=== PATIENT | female | born 1965 | race Caucasian/White ===

== ENCOUNTER → 2019-12-03 | Outpatient (CLI) | payer MEDICARE ==
--- NOTE | 2019-12-03 10:18 | XR ---
EXAMINATION TYPE: XR chest 2V DATE OF EXAM: 12/03/2019 COMPARISON: NONE HISTORY: Shortness of breath TECHNIQUE: Frontal and lateral views of the chest are obtained. FINDINGS: Scattered senescent parenchymal changes noted. Hyperinflation compatible with COPD. No evidence for infiltrate. No evidence for atelectasis. Heart size is stable. Mediastinal structures are stable and grossly unremarkable. No evidence for hilar prominence. Degenerative changes dorsal spine. IMPRESSION: 1. No evidence for acute pulmonary disease.
--- NOTE | 2019-12-03 10:28 | CT ---
EXAMINATION TYPE: CT soft tissue neck w con DATE OF EXAM: 12/03/2019 COMPARISON: None HISTORY: Submental swelling. Mass on vocal cord per patient. CT DLP: 444.7 mGycm CONTRAST: CT scan of the neck is performed with IV Contrast, patient injected with 100 mL of Isovue 300. Contrast enhanced CT of the neck was performed from the skull base through the lung apices. At the site of clinical concern which corresponds to the submental region there is prominent fat whic h could reflect lipoma. No evidence for solid mass or adenopathy in this region. AIRWAY: The supraglottic, glottic, and subglottic portions of the airway appear patent and free of mass. No visible vocal cord lesion. Correlate clinically and consider direct visualization. SALIVARY GLANDS: The submandibular and parotid glands are free of mass or inflammatory process. THYROID GLAND: Complex thyroid nodules identified bilaterally. Correlate with thyroid ultrasound. LYMPH NODES: No adenopathy seen greater than 1cm. LUNG APICES: No nodule or mass is seen. OTHER: Vascular structures are patent. Severe degenerative disc disease with the hard disc noted at C5-6 and C6-7 with central stenosis identified. Correlate with MRI. No abscess seen. IMPRESSION: 1.At the site of clinical concern which corresponds to the submental region there is prominent fat wh ich could reflect lipoma. No evidence for solid mass or adenopathy in this region. 2.No visible vocal cord lesion. Correlate clinically and consider direct visualization. 3. thyroid lesions. Further characterization with ultrasound is advised. 4. Central stenosis at C5-6 and C6-7.
== END | disposition home or self-care (01) ==
LOC: RADCTMAIN 08:51
PROVIDERS: ATTEND Otolaryngology
DX: E07.89 Other specified disorders of thyroid (principal); R05 Cough
CPT/HCPCS: 71046; 70491; Q9967

== ENCOUNTER 2019-12-15 06:23 | Day surgery (SDC) | payer MEDICARE ==
[~2019-12-15 06:23] MED LIST: ACETAMINOPHEN TAB 500 MG TAB PO ONE; DEXAMETHASONE SOD PHOSPHATE 4 MG/ML 1 ML VIAL IV ONE; FAMOTIDINE 20 MG/2 ML VIAL IV ONE; HYDROmorphone 0.5 MG/0.5 ML SYRINGE IVP PRN; LACTATED RINGERS 1,000 ML IV SCH; ONDANSETRON 4 MG/2 ML VIAL IVP ONE
[2019-12-15] MEDS ORDERED: ONDANSETRON 4 MG/2 ML VIAL ONE (06:24)
[2019-12-15] MEDS ORDERED: ACETAMINOPHEN TAB 500 MG TAB ONE (06:24)
[2019-12-15 06:45] VITALS: RESP 16
[2019-12-15] MEDS ORDERED: MIDAZOLAM 2 MG/2 ML VIAL ONE (07:26)
[2019-12-15] MEDS ORDERED: SUCCINYLCHOLINE CHLORIDE 100 MG/5 ML SYR IV ONE (07:26)
[2019-12-15] MEDS ORDERED: fentaNYL (PF) 50 MCG/ML 2 ML AMP ONE (07:26)
[2019-12-15] MEDS ORDERED: PROPOFOL 10 MG/ML 20 ML VIAL IV ONE (07:26)
[2019-12-15] MEDS ORDERED: NEOSTIGMINE 1 MG/ML 10 ML VIAL ONE (07:26)
[2019-12-15] MEDS ORDERED: DEXAMETHASONE SOD PHOSPHATE 10 MG/ML 1 ML VIAL ONE (07:26)
[2019-12-15] MEDS ORDERED: ROCURONIUM 10 MG/ML (5 ML VIAL) IV ONE (07:26)
[2019-12-15] MEDS ORDERED: GLYCOPYRROLATE 0.2 MG/ML 2 ML VIAL ONE (07:26)
[2019-12-15] MEDS ORDERED: LIDOCAINE 1% INJ 10MG/ML (20 ML MDV) ONE (07:26)
[2019-12-15 07:48] LABS: Basophils % (A) 0 %; Eosinophils % (A) 0 %; HCT 46.8 % (34.0-46.0); HGB 15.4 gm/dL (11.4-16.0); Lymphocytes # (A) 2.4 k/uL (1.0-4.8); Lymphocytes % (A) 28 %; MCHC 32.9 g/dL (31.0-37.0); MCV 94.4 fL (80.0-100.0); Mean Platelet Volume 8.3; Monocytes # (A) 0.4 k/uL (0-1.0); Monocytes % (A) 5 %; Neutrophils # (A) 5.5 k/uL (1.3-7.7); Neutrophils % (A) 65 %; Platelet Count 214 k/uL (150-450); RBC 4.95 m/uL (3.80-5.40); RDW 12.9 % (11.5-15.5); WBC 8.5 k/uL (3.8-10.6)
[2019-12-15] MEDS ORDERED: LIDOCAINE 1% INJ 10MG/ML (20 ML MDV) SQ ONE (07:59)
--- NOTE | 2019-12-15 08:52 | P.OP ---
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 This cotton quite large and now measures and was 5 cm in size. Needle biopsy reveals a probable lipoma. In addition, the patient was found to have a leukoplakic lesion of the right vocal cord. On the day of surgery she has expressed to be showing once the vocal cord biopsy and has declined the bronchoscopy and esophagoscopy. She is on inhalers and does not want anything to be done with her lungs were esophagus. Therefore per the patient's request we elected just to proceed forward with a laryngoscopy and biopsy and removal of the submental mass. All risks, benefits, and alternative therapies were discussed. Consent was obtained and all questions were answered. In addition, the patient has several thyroid nodules that she's currently being evaluated by her general surgeon Dr. Mercedes Issa. Operative Findings: Patient had a large almost 5 cm submental mass appeared to be a lipomatous growth. 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 Description of Procedure: Patient was taken to the operative room and placed in the supine position. A general inhalation anesthetic was administered to the patient by mask and subsequently intubated with a cuffed endotracheal tube by the department of anesthesia with a functioning IV line in place. The patient was monitored throughout the entire case by the department of anesthesia. The neck was sterilely prepped and draped in usual fashion and an incision was made in a wrinkle line lower in the neck. We made an incision with a 15 blade dissected through platysmas and dissected to this large lipomatous mass which was dissected and removed completely. The irrigated the area and use FloSeal for control of any postoperative bleeding. No bleeding was encountered. We closed the deep layers with 4-0 Monocryl we closed the platysmal layer with 4-0 Monocryl we closed the skin with a 5-0 Prolene. Prior to closure we did extensive undermining to allow the fascial layers to come together nicely. We obliterated the space with 4-0 Prolene. Excellent closure was obtained and we utilized Steri-Strips on top of the incision. We then opened the mouth and a tooth guard was placed. The patient does have poor teeth. A Jako laryngoscope was placed into the patient's mouth with care to avoid any trauma to the lips teeth gums and tongue. Ulcers open tongue was retracted and the entire oropharynx and hypopharynx was evaluated including the base of tongue vallecula epiglottis lateral pharynx true and false vocal cords postcricoid space piriform sinuses etc. etc. This was placed on suspension on a Lewy and microscopic visualization was performed with use of a 250 mm Leica microscope. After evaluation endoscopically then visually we removed this right vocal cord lesion. Hemostasis was spontaneous. The patient tolerated this well and the patient will be sent home with 7 days of total voice rest. Patient is to stop smoking. No alcohol is recommended. Patient understands all these preoperatively and postop semination is scheduled for 12/26/2019 at 11:30. Patient is to call if any problems should arise.
[2019-12-15 08:55] VITALS: TEMP 97.8
[2019-12-15 09:41] VITALS: BP 122/57; PULSE 80
== END 2019-12-15 09:59 | disposition home or self-care (01) ==
LOC: OR 06:23
PROVIDERS: ATTEND Otolaryngology
DX: J38.3 Other diseases of vocal cords (principal); D17.0 Benign lipomatous neoplasm of skin and subcutaneous tissue of head, face and neck; M19.90 Unspecified osteoarthritis, unspecified site; E04.1 Nontoxic single thyroid nodule; F17.210 Nicotine dependence, cigarettes, uncomplicated; Z79.899 Other long term (current) drug therapy; Z90.49 Acquired absence of other specified parts of digestive tract; Z90.710 Acquired absence of both cervix and uterus; Z90.12 Acquired absence of left breast and nipple; Z86.73 Personal history of transient ischemic attack (TIA), and cerebral infarction without residual deficits; Z80.0 Family history of malignant neoplasm of digestive organs; Z80.49 Family history of malignant neoplasm of other genital organs
CPT/HCPCS: 88304; 88305; 85025; 31541; 21556; 13132; C1762; J2250; J1100 ×2; J2710; J2405; J0690; J2001; J3010; J0330; J2704

== ENCOUNTER → 2021-01-11 | Outpatient (CLI) | payer MEDICARE ==
[2021-01-11 13:10] VITALS: BP 135/73; PULSE 79; RESP 18; TEMP 98.1
--- NOTE | 2021-01-11 13:56 | P.GSHP ---
History of Present Illness H&P Date: 01/11/21 Chief Complaint: history of left breast cancer Karol is a 55 year old white female seen in consultation for Dr. Anderson regarding a painful left breast implant. 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 An labor gang supervisor was placed several months later and the implant was then placed in November 2011. The implant is a silicone shell which is filled with saline. Following placement of the implant proximally 2 months later the patient suffered from a cerebrovascular accident. She does not have any residual from the stroke. She had very blurred vision and passed out. They have not determine the cause of the stroke. She h as subsequently developed fibromyalgia and neuropathy in her lower extremities. The patient states she has persistent burning related to the implant. The pain is constant. It is also changed in contour. She cannot lay on her left side secondary to the pain, and it causes her to be nauseated. The patient developed a lump in her right breast for which she had an excisional biopsy in 2017. She was told it was benign. She does not have any new lumps masses or nodules in either breast. She has not had a recent mammogram. Caffeine: 3 cups/day nicotine: 10 cigarettes/day chocolate: none Family history: Father: Stomach cancer Mother: Uterine cancer Sister: Uterine cancer Hormonal history: Menarche: 12 , breast fed: no, age at first : 18 menopause: hysterectomy 35; left ovaries, had uterine cancer ( did not have any radiation or chemotherapy) BCP: none hormones: none Surgical history: Hysterectomy Left breast mastectomy with implant reconstruction Right breast biopsy Appendectomy Cholecystectomy Tumor removed from vocal cord Lipoma removed Carpal tunnel right wrist Hemorrhoidectomy bladder suspension Medical history: fibromyalgia neuropathy arthritis anxiety Spasm both arms into hands Social History: nicotine: 10 cigarettes per day Alcohol: GERD Marijuana: Negative - Constitutional Constitutional: Reports sweats - EENT Eyes: denies blurred vision, denies pain Ears: bilateral: tinnitus, deny: decreased hearing Ears, nose, mouth and throat: Reports headache, Denies sore throat - Breasts Breasts: bilateral: as per HPI - Cardiovascular Comment: 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 Cardiovascular: Reports chest pain, Denies shortness of breath - Respiratory Comment: 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/ shot every two months - Gastrointestinal Gastrointestinal: Reports diarrhea, Denies abdominal pain, Denies nausea, Denies vomiting - Genitourinary (Female) Genitourinary: Denies dysuria, Denies hematuria - Menstruation Menstruation: Reports postmenopausal - Musculoskeletal Comment: arthritis, fibromyalgia - Integumentary Comment: shingles once a month on her buttock Integumentary: Reports pruritus, Reports rash - Neurological Comment: CVA - Psychiatric Psychiatric: Reports anxiety - Endocrine Endocrine: Reports fatigue, Reports weight change - Hematologic/Lymphatic Comment: none - Allergic/Immunologic Allergic/Immunologic: Reports as per HPI Past Medical History Past Medical History: Cancer, CVA/TIA Additional Past Medical History / Comment(s): hypersensitivity pneumonitis. mass chin area. dr arcadio anderson monitoring area under rib cage. cva-2011 no residual effect. breast cancer 2010. uterine cancer. lt silicone breast implant History of Any Multi-Drug Resistant Organisms: None Reported Past Surgical History: Appendectomy, Breast Surgery, Cholecystectomy, Hysterectomy Additional Past Surgical History / Comment(s): lt breast cancer with mastectomy with reconstruction, 2019 vocal cord surgery, right carpal tunnel release 06/2020 Past Anesthesia/Blood Transfusion Reactions: No Reported Reaction Past Psychological History: Anxiety Smoking Status: Current every day smoker Past Alcohol Use History: None Reported Additional Past Alcohol Use History / Comment(s): smoker for 40+ years 1 ppd attempting to quit Past Drug Use History: None Reported - Past Family History Father Family Medical History: Cancer Additional Family Medical History / Comment(s): stomach cancer Medications and Allergies Home Medications Medication Instructions Recorded Confirmed Type Albuterol Inhaler [Ventolin Hfa 1 puff INHALATION DAILY PRN 12/09/19 01/11/21 History Inhaler] Albuterol Nebulized [Ventolin 2.5 mg INHALATION DAILY PRN 12/09/19 01/11/21 History Nebulized] Fluticasone Propionate 220 Mcg 1 puff INHALATION RT-BID 12/09/19 01/11/21 History [Flovent 220 Mcg Inhaler (Mhu)] Escitalopram [Lexapro] PO DAILY 01/11/21 History Allergies Allergy/AdvReac Type Severity Reaction Status Date / Time No Known Allergies Allergy Verified 01/11/21 12:55 Surgical - Exam Vital Signs Temp Pulse Resp BP Pulse Ox 98.1 F 79 18 135/73 97 01/11/21 12:58 01/11/21 12:58 01/11/21 12:58 01/11/21 12:58 01/11/21 12:58 BMI 29.8 - General no distress - Eyes normal ocular movement - ENT no hearing loss - Neck no masses, trachea midline - Respiratory normal respiratory effort, clear to auscultation - Cardiovascular Rhythm: regular Heart Sounds: normal: S1, S2 - Abdomen Abdomen: soft, non tender, no guarding, no rigid, no rebound - Integumentary normal turgor - Neurologic no disoriented, no combative - Musculoskeletal normal gait - Psychiatric oriented to time, oriented to person, oriented to place, speech is normal, memory intact Breast Exam: BRA: 36C inspection: Postop changes left chest wall Palpation: Right breast: Multi-positional exam dense breast fibrocystic changes no dominant masses or nodules of concern; grade 2 ptosis Right axilla: No adenopathy of concern Left chest wall colon implant reconstruction well-healed scar from prior surgery no evidence of any recurrent cancer Left axilla: No adenopathy of concern Results Mammogram from [address] Carroll patient does not have a more recent mammogram Assessment and Plan Assessment: Impression: 1. Status post right breast biopsy no lesions of concern noted in the right breast, last right breast mammogram 2018 2. Status post left mastectomy for malignant full-radius tumor with subpectoral implant reconstruction, no evidence of recurrent cancer at this time 3. Patient experiencing pain related to the implant Plan: 1. Patient would like the implant removed; it has been in for 9 years; is changed contour, it makes it difficult for her to find close to fit correctly, it is painful on a regular basis 2. Patient is due for a right breast mammogram I discussed the risks and benefits of removal of the implant. Secondary to the fact that the skin would be redundant. Also decreased the envelope of skin and remove the nipple areolar complex. She would have a flat incision across the chest wall. She understands this. She also understands that it may or may not alleviate her pain. She would like to proceed. CC: Dr. Anderson
== END | disposition home or self-care (01) ==
LOC: WWCWWP 12:47
PROVIDERS: ATTEND Surgery
DX: Z53.9 Procedure and treatment not carried out, unspecified reason (principal)

== ENCOUNTER → 2021-01-16 | Outpatient (CLI) | payer MEDICARE ==
--- NOTE | 2021-01-16 11:10 | MM ---
Reason for exam: additional evaluation requested from prior study. Last mammogram was performed 1 year and 10 months ago. History: Patient has history of breast cancer at age 45 and has history of endometrial cancer at age 35. Benign ultrasound-guided core biopsy of the right breast, January 14, 2014. Implant in the left breast, 2011. Mastectomy of the left breast, 2010. Physical Findings: Nurse did not find any significant physical abnormalities on exam. MG 3D Diag Mammo W/Cad RT CC and MLO view(s) were taken of the right breast. Prior study comparison: March 30, 2019, mammogram, performed at [facility]. January 05, 2018, mammogram, performed at [facility]. The breast tissue is heterogeneously dense. This may lower the sensitivity of mammography. Finding: There are typically benign fine, diffuse/scattered calcifications in the right breast. Previous mammotome biopsy in the right breast. These results were verbally communicated with the patient and result sheet given to the patient on 01/16/21. ASSESSMENT: Incomplete: need additional imaging evaluation, BI-RAD 0 RECOMMENDATION: Ultrasound of the right breast. (region of pain)
--- NOTE | 2021-01-16 11:15 | USB ---
Reason for exam: additional evaluation requested from abnormal screening. History: Patient has history of breast cancer at age 45 and has history of endometrial cancer at age 35. Benign ultrasound-guided core biopsy of the right breast, January 14, 2014. Implant in the left breast, 2011. Mastectomy of the left breast, 2010. US Breast RT Right complete breast ultrasound includes all four quadrants, the retroareolar region and axilla. Finding demonstrates a 0.5 x 0.5 x 0.4cm oval, complex, cystic lesion at 12 o'clock, a 0.4 x 0.3 x 0.4cm oval, complex, cystic lesion at 1 o'clock, a 0.5 x 0.4 x 0.3cm oval, complex, cystic cluster at 2 o'clock, a 0.9 x 0.7 x 0.5cm oval, cystic lesion at 5 o'clock, a 0.5 x 0.6 x 0.4cm oval, cystic cluster at 5 o'clock, no posterior enhancement, biopsy recommended, duct ectasia at 7 o'clock, a 0.9 x 0.8 x 0.5cm cystic lesion at 9 o'clock, a 1.0 x 0.8 x 0.4cm lobular, cystic lesion at 11 o'clock and a 1.6 x 1.1 x 1.0cm lymph node at the axilla. These results were verbally communicated with the patient and result sheet given to the patient on 01/16/21. ASSESSMENT: Suspicious, BI-RAD 4 RECOMMENDATION: Ultrasound core biopsy of the right breast. (5 o'clock) Called office with mammographic findings and has scheduled an appointment for the patient for 02/07/21 at 12:[address] Pritchard. Biopsy scheduled for 01/23/21 at 7:00. PRELIMINARY REPORT CALLED AND FAXED TO DR. PRITCHARD ON 01/16/21.
== END | disposition home or self-care (01) ==
LOC: RADMAMWWP 08:57
PROVIDERS: ATTEND Surgery
DX: R92.8 Other abnormal and inconclusive findings on diagnostic imaging of breast (principal); N64.4 Mastodynia; Z85.3 Personal history of malignant neoplasm of breast
CPT/HCPCS: 77065; 76641; G0279; 77061

== ENCOUNTER → 2021-01-23 | Day surgery (SDC) | payer MEDICARE ==
[2021-01-23 07:23] VITALS: BP 130/74; PULSE 84; RESP 16; TEMP 98.4
--- NOTE | 2021-01-23 14:35 | USB ---
EXAMINATION TYPE: US discontinued breast bx RT DATE OF EXAM: 01/23/2021 COMPARISON: 01/16/2021 HISTORY: 55-year-old female R920.8, abnormal mammogram TECHNIQUE: Targeted ultrasound 5:00 position at the intended biopsy site, zone A. FINDINGS: On targeted ultrasound, there is redemonstration of a oval lesion 5:00 zone a. However, on the curren t exam, this has a more cystic appearance now with posterior through transmission. Suspect a cyst yvonne t has cleared and internal debris. Biopsy is canceled. Six-month follow-up right breast ultrasound is recommended. Findings and impression were discussed with the patient. IMPRESSION: BI-RADS 3, probably benign RECOMMENDATION: 1. Six-month follow-up right breast ultrasound. 2. Patient should continue monthly self breast exams. 3. These results should not preclude additional follow-up of suspicious palpable abnormalities.
== END ==
LOC: RADUSWWP 06:57
PROVIDERS: ATTEND Surgery
DX: R92.8 Other abnormal and inconclusive findings on diagnostic imaging of breast (principal)

== ENCOUNTER → 2021-02-07 | Outpatient (CLI) | payer MEDICARE ==
[2021-02-07 12:51] VITALS: BP 131/74; PULSE 105; RESP 12; TEMP 98.7
--- NOTE | 2021-02-07 13:21 | P.PN ---
Subjective Progress Note Date: 02/07/21 Principal diagnosis: Malignant phylloides tumor left breast, 2010 Karol is a 55 year old white female seen in consultation for Dr. Anderson regarding a painful left breast implant. 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 An cannery tender engineer was placed several months later and the implant was then placed in November 2011. The implant is a silicone shell which is filled with saline. Following placement of the implant proximally 2 months later the patient suffered from a cerebrovascular accident. She does not have any residual from the stroke. She had very blurred vision and passed out. They have not determine the cause of the stroke. She has subsequently developed fibromyalgia and neuropathy in her lower extremities. She has had multiple right breast biopsies, she has persistent pain and discomfort in the right breast. She has anxiety related to the right breast patient will develop a tumor in the side. She is not interested in continued surveillance and would like to have a right breast mastectomy to match removal of the left breast implant so she will be symmetric. We have discussed the prophylactic mastectomy does not increase survival, she understands this but is very concerned about the surveillance and the asymmetry and wishes it to be removed. I've also discussed that prophylactic mastectomy has risks associated with it which include bleeding, infection, reaction to the anesthetic. Again she understands and wishes to proceed. The patient states she has persistent burning related to the implant. The pain is constant. It is also changed in contour. She cannot lay on her left side secondary to the pain, and it causes her to be nauseated. She cannot find clothes to fit correctly. The patient developed a lump in her right breast for which she had an excisional biopsy in 2017. She was told it was benign. She does not have any new lumps masses or nodules in either breast. She has not had a recent mammogram. [place] [id number]. This was followed by a right breast ultrasound. Initially there was recommendation for core biopsy however on attempted core biopsy on the procedure was canceled with six-month follow-up of the right breast recommended instead. Caffeine: 3 cups/day nicotine: 10 cigarettes/day chocolate: none Family history: Father: Stomach cancer Mother: Uterine cancer Sister: Uterine cancer patient: malignant phyloides tumor Hormonal history: Menarche: 12 , breast fed: no, age at first : 18 menopause: hysterectomy 35; left ovaries, had uterine cancer ( did not have any radiation or chemotherapy) BCP: none hormones: none Surgical history: Hysterectomy Left breast mastectomy with implant reconstruction; malignant phylloides tumor Right breast biopsy Appendectomy Cholecystectomy Tumor removed from vocal cord Lipoma removed Carpal tunnel right wrist Hemorrhoidectomy bladder suspension Medical history: fibromyalgia neuropathy arthritis anxiety Spasm both arms into hands Social History: nicotine: 10 cigarettes per day Alcohol: GERD Marijuana: Negative - Constitutional Constitutional: Reports sweats - EENT Eyes: denies blurred vision, denies pain Ears: bilateral: tinnitus, deny: decreased hearing Ears, nose, mouth and throat: Reports headache, Denies sore throat - Breasts Breasts: bilateral: as per HPI - Cardiovascular Comment: 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 Cardiovascular: Reports chest pain, Denies shortness of breath - Respiratory Comment: 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/ shot every two months - Gastrointestinal Gastrointestinal: Reports diarrhea, Denies abdominal pain, Denies nausea, Denies vomiting - Genitourinary (Female) Genitourinary: Denies dysuria, Denies hematuria - Menstruation Menstruation: Reports postmenopausal - Musculoskeletal Comment: arthritis, fibromyalgia - Integumentary Comment: shingles once a month on her buttock Integumentary: Reports pruritus, Reports rash - Neurological Comment: CVA - Psychiatric Psychiatric: Reports anxiety - Endocrine Endocrine: Reports fatigue, Reports weight change - Hematologic/Lymphatic Comment: none - Allergic/Immunologic Allergic/Immunologic: Reports as per HPI Objective - Vital Signs Vital signs: Vital Signs Temp 98.7 F 02/07/21 12:43 Pulse 105 H 02/07/21 12:43 Resp 12 02/07/21 12:43 BP 131/74 02/07/21 12:43 Pulse Ox 96 02/07/21 12:43 Intake & Output 02/06/21 02/07/21 02/07/21 18:59 06:59 18:59 Weight 86.183 kg - Exam BMI 29.8 - Constitutional General appearance: Present: cooperative - EENT Eyes: Present: EOMI ENT: Present: hearing grossly normal - Neck Neck: Present: normal ROM - Respiratory Respiratory: bilateral: CTA - Cardiovascular Rhythm: regular Heart sounds: normal: S1, S2 - Integumentary Integumentary: Present: normal turgor - Musculoskeletal Musculoskeletal: Present: gait normal - Psychiatric Psychiatric: Present: A&O x's 3, appropriate affect, intact judgment & insight - Additional findings Additional findings: Breast examination: Block: 30 6C Inspection: Postop changes left chest wall Palpation: Right breast: Positional exam dense fibrocystic changes no dominant masses or nodules of concern, grade 2 ptosis Right axilla: No adenopathy of concern Left chest wall colon implant reconstruction well-healed scar from prior surgery no evidence of recurrent cancer Left axilla: No adenopathy of concern Assessment and Plan Assessment: Impression: 1. Multiple prior right breast biopsies which have been benign, recent recommendation for right breast biopsy canceled and ultrasound in 6 months suggested 2. Status post left mastectomy for malignant phyllodes tumor with subpectoral implant reconstruction no evidence of recurrent cancer at this time 3. Patient experiencing pain related to the implant 4. Patient asymmetric secondary to the implant 5. Implant is painful 6. Patient cannot find close to fit correctly secondary to the asymmetry Plan: 1. Patient would like the implant removed, it has been in for 9 years it is changed contour it is difficult for her to find close to fit correctly, it is painful on a regular basis, 2. Patient wishes prophylactic right mastectomy, we have discussed that this will not increase survival however it will improve an symmetry, the patient understands and wishes it to be performed Risks and benefits of the procedure are discussed which include bleeding, infection, reaction to the anesthetic. She also understands that she could be seen by plastic surgeon if she would wish and has declined at this time. The patient does not want reconstruction done after the implant was removed. Cc: Dr. Franck Anderson
== END ==
LOC: WWCWWP 12:38
PROVIDERS: ATTEND Surgery
DX: Z53.9 Procedure and treatment not carried out, unspecified reason (principal)

== ENCOUNTER → 2021-04-05 | Outpatient (CLI) | payer MEDICARE ==
[2021-04-05 12:37] VITALS: BP 127/72; PULSE 88; RESP 16; TEMP 98
--- NOTE | 2021-04-05 13:00 | P.PN ---
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 Anderson regarding a painful left breast implant. 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 An relay associate was placed several months later and the implant was then placed in November 2011. The implant is a silicone shell which is filled with saline. Following placement of the implant approximately 2 months later the patient suffered from a cerebrovascular accident. She does not have any residual from the stroke. She had very blurred vision and passed out. They have not determine the cause of the stroke. She has subsequently developed fibromyalgia and neuropathy in her lower extremities. She has had multiple right breast biopsies, she has persistent pain and discomfort in the right breast. She has anxiety related to the right breast that she will develop a tumor in the side. She is not interested in continued surveillance and would like to have a right breast mastectomy: to match she wishes removal of the left breast implant so she will be symmetric. We have discussed the prophylactic mastectomy does not increase survival, she understands this but is very concerned about the surveillance and the asymmetry and wishes it to be removed. I've also discussed that prophylactic mastectomy has risks associated with it which include bleeding, infection, reaction to the anesthetic. Again she understands and wishes to proceed. The patient states she has persistent burning related to the implant. The pain is constant. It is also changed in contour. She cannot lay on her left side secondary to the pain, and it causes her to be nauseated. She cannot find clothes to fit correctly. The patient developed a lump in her right breast for which she had an excisional biopsy in 2017. She was told it was benign. She does not have any new lumps masses or nodules in either breast. She has not had a recent mammogram. She underwent a right breast mammogram on . This was followed by a right breast ultrasound. Initially there was recommendation for core biopsy however on attempted core biopsy on the procedure was canceled with six-month follow-up of the right breast recommended instead. Caffeine: 3 cups/day nicotine: 10 cigarettes/day chocolate: none Family history: Father: Stomach cancer Mother: Uterine cancer Sister: Uterine cancer patient: malignant phyloides tumor Hormonal history: Menarche: 12 , breast fed: no, age at first : 18 menopause: hysterectomy 35; left ovaries, had uterine cancer ( did not have any radiation or chemotherapy) BCP: none hormones: none Surgical history: Hysterectomy Left breast mastectomy with implant reconstruction; malignant phylloides tumor Right breast biopsy Appendectomy Cholecystectomy Tumor removed from vocal cord Lipoma removed Carpal tunnel right wrist Hemorrhoidectomy bladder suspension Medical history: fibromyalgia neuropathy arthritis anxiety Spasm both arms into hands Social History: nicotine: 10 cigarettes per day Alcohol: GERD Marijuana: Negative - Constitutional Constitutional: Reports sweats - EENT Eyes: denies blurred vision, denies pain Ears: bilateral: tinnitus, deny: decreased hearing Ears, nose, mouth and throat: Reports headache, Denies sore throat - Breasts Breasts: bilateral: as per HPI - Cardiovascular Comment: 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 Cardiovascular: Reports chest pain, Denies shortness of breath - Respiratory Comment: 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/ shot every two months - Gastrointestinal Gastrointestinal: Reports diarrhea, Denies abdominal pain, Denies nausea, Denies vomiting - Genitourinary (Female) Genitourinary: Denies dysuria, Denies hematuria - Menstruation Menstruation: Reports postmenopausal - Musculoskeletal Comment: arthritis, fibromyalgia - Integumentary Comment: shingles once a month on her buttock Integumentary: Reports pruritus, Reports rash - Neurological Comment: CVA - Psychiatric Psychiatric: Reports anxiety - Endocrine Endocrine: Reports fatigue, Reports weight change - Hematologic/Lymphatic Comment: none - Allergic/Immunologic Allergic/Immunologic: Reports as per HPI Objective - Vital Signs Vital signs: Vital Signs Temp 98.0 F 04/05/21 12:33 Pulse 88 04/05/21 12:33 Resp 16 04/05/21 12:33 BP 127/72 04/05/21 12:33 Pulse Ox Intake & Output 04/04/21 04/05/21 04/05/21 18:59 06:59 18:59 Weight 86.183 kg - Exam BMI 29.8 - Constitutional General appearance: Present: cooperative - EENT Eyes: Present: EOMI ENT: Present: hearing grossly normal - Neck Neck: Present: normal ROM - Respiratory Respiratory: bilateral: CTA - Cardiovascular Heart sounds: normal: S1, S2 - Gastrointestinal General gastrointestinal: Present: soft - Integumentary Integumentary: Present: normal turgor - Musculoskeletal Musculoskeletal: Present: gait normal - Psychiatric Psychiatric: Present: A&O x's 3, appropriate affect, intact judgment & insight - Additional findings Additional findings: Breast Exam: Bra: 36C inspection: which are between the right and left breast secondary to prior surgery and left mastectomy Palpation: Right breast: Multiple positional exam no dominant masses or nodules of concern Right axilla: No adenopathy of concern Left chest wall: Status post left mastectomy with reconstruction no evidence of recurrent phyllodes tumor Left axilla: No adenopathy of concern Assessment and Plan Assessment: Impression: 1. Asymmetry secondary to prior left mastectomy for lady's tumor 2. Recent mammogram multiple prior right breast biopsies which have been benign 4. Painful implant on the left 6. Patient has difficulty finding close to fit properly secondary to the asymmetry Plan: 1. Patient would like the implant removed, it is been there for 9 years is changed contour it is difficult for her to find close to fit correctly is painful on a regular basis 2. Patient wishes prophylactic right mastectomy we have discussed this will not increase survival however will improve and symmetry, the patient understands and wishes this to be performed Risks and benefits of the procedure discussed which include bleeding, infection, reaction to the anesthetic. She also understands that she could be seen by a plastic surgeon if she would wish and has declined at this time. The patient does not want reconstruction done after the implant are removed. CC: Dr. Gomez
== END | disposition home or self-care (01) ==
LOC: WWCWWP 12:21
PROVIDERS: ATTEND Surgery
DX: Z53.9 Procedure and treatment not carried out, unspecified reason (principal)

== ENCOUNTER 2021-04-09 07:35 | Day surgery (SDC) | payer MEDICARE ==
[2021-04-04 16:05] VITALS: BMI 29.7
[~2021-04-09 07:35] MED LIST changes: -ACETAMINOPHEN TAB 500 MG TAB PO ONE; -FAMOTIDINE 20 MG/2 ML VIAL IV ONE; +HEPARIN SODIUM,PORCINE/PF 5,000 UNIT/0.5 ML SYRINGE SQ PRN; +Pre Op ABX Message 1 EACH MISC MISCELLANE ONE
[2021-04-09] MEDS ORDERED: LIDOCAINE 1% (10MG/ML) FOR IV START INTRADERMA ONE (08:22)
[2021-04-09] MEDS ORDERED: SUCCINYLCHOLINE CHLORIDE 100 MG/5 ML SYR IV ONE (08:46)
[2021-04-09] MEDS ORDERED: GLYCOPYRROLATE 0.2 MG/ML 2 ML VIAL ONE (08:46)
[2021-04-09] MEDS ORDERED: PROPOFOL 10 MG/ML 20 ML VIAL IV ONE (08:46)
[2021-04-09] MEDS ORDERED: NEOSTIGMINE 1 MG/ML 10 ML VIAL ONE (08:46)
[2021-04-09] MEDS ORDERED: LABETALOL 5 MG/ML VIAL MDV ONE (08:46)
[2021-04-09] MEDS ORDERED: MIDAZOLAM 2 MG/2 ML VIAL ONE (08:46)
[2021-04-09] MEDS ORDERED: LIDOCAINE 1% INJ 10MG/ML (20 ML MDV) ONE (08:46)
[2021-04-09] MEDS ORDERED: KETAMINE 10 MG/ML 20 ML VIAL ONE (08:46)
[2021-04-09] MEDS ORDERED: ROCURONIUM 10 MG/ML (5 ML VIAL) IV ONE (08:46)
[2021-04-09] MEDS ORDERED: .fentaNYL (PF) 50 MCG/ML 2 ML AMP ONE (08:46)
[2021-04-09] MEDS ORDERED: SODIUM CHLORIDE 0.9% 100 ML with ceFAZolin 2,000 MG IV ONE ×2 (09:01)
[2021-04-09] MEDS ORDERED: LACTATED RINGERS 1,000 ML IV ONE (10:48)
[2021-04-09] MEDS ORDERED: HYDROmorphone 1 MG/ML 1 ML SYRINGE IVP PRN (12:03)
[2021-04-09] MEDS ORDERED: HYDROcodone/APAP 5-325MG 1 EACH TAB PO PRN (12:03)
[2021-04-09] MEDS ORDERED: ONDANSETRON 4 MG/2 ML VIAL IVP PRN (12:03)
[2021-04-09] MEDS ORDERED: NALOXONE 0.4 MG/ML 1 ML VIAL IV PRN (12:03)
--- NOTE | 2021-04-09 12:03 | P.OP ---
Date of Procedure: 04/09/21 Preoperative Diagnosis: Contracture left breast implant/history of malignant fluid these tumor left breast/patient for right mastectomy related to symmetry Postoperative Diagnosis: Contracture left breast implant/prior history left breast for phylloides tumor Procedure(s) Performed: Removal left breast implant, removal of left chest wall, right simple mastectomy Anesthesia: JUS Surgeon: Lulu Pritchard Estimated Blood Loss (ml): 50 IV fluids (ml): 1,400 Pathology: other (Left breast implant/left implant capsule/right simple mastectomy) Condition: stable Disposition: floor Indications for Procedure: Contracture left breast implant/asymmetry following removal Operative Findings: Left breast implant was capsule, dense right breast tissue Description of Procedure: Patient is a 55-year-old white female status post left mastectomy and implant reconstruction approximately 9 years ago for malignant phylloides tumor. She has subsequently developed contracture of the left breast implant with pain. She wishes the implant to be removed without reconstruction additionally she wishes a right mastectomy secondary to asymmetry which would be present. The patient was taken to the operative suite and following induction of anesthesia both breasts were prepped and draped in a sterile fashion. The left side was approached initially. An incision was made and a portion of the skin was removed. This was carried down to the pectoralis muscle which was dissected free from the skin flaps. The implant was identified it was very superficial under the muscle and was extruded. Following this the capsule was grasped and was able to be dissected free. The wound was then examined for hemostasis. After we were assured that hemostasis was attained the wound was well irrigated. Surgicel in powder form was placed. The subcutaneous tissues were closed using 3-0 Vicryl suture. The skin was closed using 4-0 Monocryl. Prior to closure a #10 JASON drain was placed and secured using a nylon suture. Following this the right side was approached. The area for incision was drawn and the superior flap was then developed. This was developed down to the chest wall. Inferior skin flap was then developed. The breast was removed from medial to lateral being careful to maintain hemostasis using the electrocautery cautery device as well as the Harmonic scalpel. After the specimen was removed it was tagged for orientation. A short suture was placed superior and a long suture was lateral. The wound was well irrigated. After we were assured that hemastasis was attained surgicel in powder form was placed. A JASON drain was placed and secured using a nylon suture. The subcutaneous tissue was closed using 3-0 Vicryl suture. This is followed by closure of the skin using a 4-0 Monocryl. An exofinfusion dressing was placed on both sides. The patient tolerated the procedure in stable condition. All instrument and sponge counts were correct at the end of the case.
[2021-04-09 16:28] VITALS: RESP 16
[2021-04-09] MEDS: HEPARIN SODIUM,PORCINE/PF 5,000 UNIT/0.5 ML SYRINGE SQ SCH (16:50)
[2021-04-09] MEDS: DEXTROSE 5%-0.45% NACL 1,000 ML IV SCH (16:51)
[2021-04-09] MEDS ORDERED: ALBUTEROL NEBULIZED 2.5 MG/3 ML INHALATION PRN (17:18)
[2021-04-09] MEDS ORDERED: ALBUTEROL HFA INHALER INHALATION PRN ×3 (17:31→19:03)
[2021-04-09] MEDS ORDERED: DEXTROSE 5%-0.45% NACL 1,000 ML BAG IV ONE (22:15)
[2021-04-10] MEDS ORDERED: HEPARIN SODIUM,PORCINE 5,000 UNIT/ML 1 ML VIAL ONE
[2021-04-10] MEDS: HEPARIN SODIUM,PORCINE/PF 5,000 UNIT/0.5 ML SYRINGE SQ SCH ×2 (03:18→10:35)
[2021-04-10] MEDS: DEXTROSE 5%-0.45% NACL 1,000 ML IV SCH (03:18)
[2021-04-10] MEDS ORDERED: PANTOPRAZOLE 40 MG TABLET PO SCH (07:30)
[2021-04-10 08:57] VITALS: BP 143/78; PULSE 76; TEMP 98
[2021-04-10 09:35] LABS: Basophils # (A) 0.1 k/uL (0-0.2); Basophils % (A) 0 %; Eosinophils % (A) 0 %; HCT 42.4 % (34.0-46.0); Lymphocytes # (A) 3.7 k/uL (1.0-4.8); Lymphocytes % (A) 24 %; MCH 31.7 pg (25.0-35.0); MCV 95.9 fL (80.0-100.0); Monocytes # (A) 0.5 k/uL (0-1.0); Monocytes % (A) 3 %; Neutrophils # (A) 11.1 k/uL (1.3-7.7); Neutrophils % (A) 72 %; Platelet Count 197 k/uL (150-450); RBC 4.42 m/uL (3.80-5.40); RDW 13.7 % (11.5-15.5); WBC 15.6 k/uL (3.8-10.6)
--- NOTE | 2021-04-10 13:08 | P.PN ---
Subjective Progress Note Date: 04/10/21 Principal diagnosis: Postop day #1 right mastectomy, left removal of implant and capsulectomy The patient is a 55-year-old white female postop day #1 removal of left breast implant and capsulectomy and right simple mastectomy. Postprocedure the patient is doing well. JASON output is serous in nature. Hemoglobin 14. White blood cell count 15.6 been no evidence of infection. She is not complaining of any nausea or pain. Objective - Vital Signs Vital signs: Vital Signs Temp 98.0 F 04/10/21 07:55 Pulse 76 04/10/21 07:55 Resp 16 04/10/21 08:00 BP 143/78 04/10/21 07:55 Pulse Ox 95 04/10/21 07:55 Intake & Output 04/09/21 04/10/21 04/10/21 18:59 06:59 18:59 Intake Total 1820 Output Total 265 65 90 Balance 1555 -65 -90 Weight 86.3 kg Intake: IV 1700 Oral 120 Output: Drainage 15 65 90 Right drain 5 5 10 left drain 10 60 80 Urine 200 Estimated Blood Loss 50 Other: # Voids 1 3 - Constitutional General appearance: Present: cooperative - EENT Eyes: Present: EOMI ENT: Present: hearing grossly normal - Neck Neck: Present: normal ROM - Respiratory Details: Decreased breath sounds at bases Respiratory: bilateral: CTA - Cardiovascular Heart sounds: normal: S1, S2 - Integumentary Integumentary Comment(s): Dressing changed, incisions clean and dry bilateral, JASON right 10 mL serous JASON left 80 mL serous - Psychiatric Psychiatric: Present: A&O x's 3, appropriate affect, intact judgment & insight - Labs CBC & Chem 7: 04/10/21 07:15 Labs: Abnormal Lab Results - Last 24 Hours (Table) 04/10/21 Range/Units 07:15 WBC 15.6 H (3.8-10.6) k/uL Neutrophils # 11.1 H (1.3-7.7) k/uL Assessment and Plan Assessment: Impression: Patient post operative day #1 right mastectomy, left removal of implant and capsulectomy Serous drainage left side 80 mL White blood cell count 15.6 no evidence of infection at incision site Plan: Discharge patient home Teach drain care Repeat WBC in follow-up in 2 days If patient develops any fever or any questions or concerns she should follow up sooner Using incentive spirometry at home/patient history of nicotine use
--- NOTE | 2021-04-10 13:12 | P.DS ---
Providers Attending physician: Lulu Pritchard Primary care physician: Franck Anderson MD Hospital Course: Patient on 04-09-21 status post right mastectomy and left removal of implant and capsulectomy. Postprocedure she is doing well. She was noted to have an elevated white count of 15.6 but no evidence of active infection. She is afebrile. Incisions are clean and dry. JASON drainage is serous in nature. She does have some slight decreased breath sounds at the bases has a history of nicotine use. She is encouraged to use incentive spirometry. Procedures: 14954 right mastectomy, left removal of implant and capsulectomy Plan - Discharge Summary Discharge Rx Participant: No New Discharge Prescriptions: No Action Albuterol Inhaler [Ventolin Hfa Inhaler] 2 puff INHALATION QID PRN PRN Reason: sob, wheezing Benralizumab [Fasenra] 30 mg INJ Q60D Escitalopram [Lexapro] 10 mg PO QAM Omeprazole 40 mg PO QAM Discharge Medication List Albuterol Inhaler [Ventolin Hfa Inhaler] 2 puff INHALATION QID PRN 12/09/19 [History] Escitalopram [Lexapro] 10 mg PO QAM 01/11/21 [History] Benralizumab [Fasenra] 30 mg INJ Q60D 01/21/21 [History] Omeprazole 40 mg PO QAM 04/04/21 [History] Follow up Appointment(s)/Referral(s): Lulu Pritchard MD [STAFF PHYSICIAN] - 04/18/21 3:20 pm Activity/Diet/Wound Care/Special Instructions: Pt's albuterol inhaler is in med room, please give back to her at discharge. OK TO DISCHARGE HOME, DAILY DRESSING CHANGE, CALL FOR TEMP >or = to 100.4, any thick red, or yellow/green foul drainage from JASON drains, any other problems or concerns. Sponge bathe until ok'd by Dr. De Paz to shower. Strip drains 3 times a day and empty as needed and record. Light activity, no lifting or strenous activity. No driving while taking norco. Repeat labs prior to office recheck appt with Dr. De Paz. Patient drain care Continue to use incentive spirometer May shower after 48 hours Drain and record JASON output every 24 hours and as needed Discharge Disposition: HOME SELF-CARE
== END 2021-04-10 14:30 | disposition home or self-care (01) ==
LOC: OR 07:35 → 6PED 12:03 → OR 04-10 14:30
PROVIDERS: ATTEND Surgery
DX: T85.44XA Capsular contracture of breast implant, initial encounter (principal); N65.1 Disproportion of reconstructed breast; Z85.3 Personal history of malignant neoplasm of breast; Z20.822 Contact with and (suspected) exposure to COVID-19; Z98.890 Other specified postprocedural states; K21.9 Gastro-esophageal reflux disease without esophagitis; M79.7 Fibromyalgia; F41.9 Anxiety disorder, unspecified; F17.210 Nicotine dependence, cigarettes, uncomplicated; F32.A Depression, unspecified; M19.90 Unspecified osteoarthritis, unspecified site; G62.9 Polyneuropathy, unspecified; Z86.73 Personal history of transient ischemic attack (TIA), and cerebral infarction without residual deficits; J67.8 Hypersensitivity pneumonitis due to other organic dusts; Z78.0 Asymptomatic menopausal state; Z90.710 Acquired absence of both cervix and uterus; Z90.49 Acquired absence of other specified parts of digestive tract; Z80.49 Family history of malignant neoplasm of other genital organs; Z80.0 Family history of malignant neoplasm of digestive organs; Z79.899 Other long term (current) drug therapy
CPT/HCPCS: 88305; 85025; 88307; 87635; 19303; 19328; J2250; J1644 ×3; J1100; J2710; J2405; J0690; J2001; J3010; J0330; J2704; J1170; 88309

== ENCOUNTER → 2021-04-12 | Outpatient (CLI) | payer MEDICARE | END | disposition home or self-care (01) | LOC: WWCWWP 09:10 | PROVIDERS: ATTEND Surgery | DX: Z53.9 Procedure and treatment not carried out, unspecified reason (principal) ==

== ENCOUNTER → 2021-04-12 | Outpatient (CLI) | payer MEDICARE ==
[2021-04-12 09:54] VITALS: BP 122/67; PULSE 81; RESP 18; TEMP 98.1
--- NOTE | 2021-04-12 10:10 | P.PN ---
Progress Note - Text Progress Note Date: 04/12/21 Karol is a 55 -year-old white female status post removal of left breast implant and capsule and right mastectomy on . Postoperatively she is doing well. She has minimal output from her right JASON drain which will be removed today the left JASON drain continues to put out approximately 50 mL per day with a serous in nature. Physical exam: Lungs: Clear Heart: S1-S2 Bilateral incisions clean and dry no evidence of infection JASON right serous in nature. Proximally 5 mL a day JASON left approximately 50 mL per day serous in nature Impression/plan: 1. Remove right JASON drain 2. Follow up next week for removal of left JASON drain 3. Repeat CBC is white count at time of discharge was 15.6
== END | disposition home or self-care (01) ==
LOC: WWCWWP 09:38
PROVIDERS: ATTEND Surgery
DX: Z53.9 Procedure and treatment not carried out, unspecified reason (principal)

== ENCOUNTER → 2021-04-18 | Outpatient (CLI) | payer MEDICARE ==
[2021-04-18 15:41] VITALS: BP 107/70; PULSE 73; RESP 16; TEMP 98.2
--- NOTE | 2021-04-18 16:00 | P.PN ---
Progress Note - Text Progress Note Date: 04/18/21 Karol is a 55 -year-old white female status post removal of left breast implant and capsule and right mastectomy on . Postoperatively she is doing well. She has minimal output from her right JASON drain which will be removed today the left JASON drain continues to put out approximately 50 mL per day with a serous in nature. Tolliver CBC revealing white count 10.75, hemoglobin 13.9. Physical exam: Lungs: Clear Heart: S1-S2 Bilateral incisions clean and dry no evidence of infection Small seroma right chest wall patient does not want this to be drained JASON left approximately 25 mL per day serous in nature Impression/plan: 1. Remove right JASON drain 2. Follow-up 6 months for evaluation 3. Follow up sooner if any concerns regarding seroma development CC: Dr. Anderson
== END | disposition home or self-care (01) ==
LOC: WWCWWP 15:31
PROVIDERS: ATTEND Surgery
DX: Z53.9 Procedure and treatment not carried out, unspecified reason (principal)

== ENCOUNTER → 2021-05-10 | Outpatient (CLI) | payer MEDICARE ==
[2021-05-10 14:30] VITALS: BP 120/74; PULSE 88; RESP 18; TEMP 98.6
--- NOTE | 2021-05-10 14:56 | P.PN ---
Progress Note - Text Progress Note Date: 05/10/21 Karol is a 56 -year-old white female status post removal of left breast implant and capsule and right mastectomy on . Postoperatively she is doing well. She did develop a seroma on the right chest wall in a drainage. Physical exam: lungs: clear heart: RRR Bilateral incisions clean and dry no evidence of infection seroma right chest wall Area of the right chest is prepped using Betadine 18-gauge needle and 60 mL syringe was utilized to aspirate seroma, 90 mL of fluid was aspirated Following the 18-gauge needle on a 20 mL syringe was utilized to aspirate an additional 30 mL of fluid A total of 120 mL of serous colored fluid was aspirated with resolution of the seroma Impression/plan: 1. aspiration of seroma 2. Follow-up 6 months for evaluation 3. Follow up sooner if any concerns regarding seroma development
== END | disposition home or self-care (01) ==
LOC: WWCWWP 14:16
PROVIDERS: ATTEND Surgery
DX: Z53.9 Procedure and treatment not carried out, unspecified reason (principal)

== ENCOUNTER → 2021-10-10 | Outpatient (CLI) | payer MEDICARE ==
[2021-10-10 12:02] VITALS: BP 177/70; PULSE 86; RESP 17; TEMP 98.1
--- NOTE | 2021-10-10 12:13 | P.PN ---
Subjective Progress Note Date: 10/10/21 Principal diagnosis: left breast malignant phylloides tumor Malignant phylloides tumor left breast, 2010 Karol is a 55 year old white female seen in consultation for Dr. Anderson regarding a painful left breast implant. 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 An track dresser was placed several months later and the implant was then placed in November 2011. The implant is a silicone shell which is filled with saline. Following placement of the implant approximately 2 months later the patient suffered from a cerebrovascular accident. She does not have any residual from the stroke. She had very blurred vision and passed out. They have not determine the cause of the stroke. She has subsequently developed fibromyalgia and neuropathy in her lower extremities. She has had multiple right breast biopsies, she has persistent pain and discomfort in the right breast. She has anxiety related to the right breast that she will develop a tumor in the side. She is not interested in continued surveillance and would like to have a right breast mastectomy: to match she wishes removal of the left breast implant so she will be symmetric. We have discussed the prophylactic mastectomy does not increase survival, she understands this but is very concerned about the surveillance and the asymmetry and wishes it to be removed. I've also discussed that prophylactic mastectomy has risks associated with it which include bleeding, infection, reaction to the anesthetic. Again she understands and wishes to proceed. The patient states she has persistent burning related to the implant. The pain is constant. It is also changed in contour. She cannot lay on her left side secondary to the pain, and it causes her to be nauseated. She cannot find clothes to fit correctly. The patient developed a lump in her right breast for which she had an excisional biopsy in 2017. She was told it was benign. She does not have any new lumps masses or nodules in either breast. She has not had a recent mammogram. She underwent a right breast mammogram on . This was followed by a right breast ultrasound. Initially there was recommendation for core biopsy however on attempted core biopsy on the procedure was canceled with six-month follow-up of the right breast recommended instead. She underwent a left breast implant removal and right mastectomy on 04-09-21. 10-10-21 This time she has no complaints related to her chest wall. She is not complaining of any lumps masses or nodules on her chest wall. Caffeine: 3 cups/day nicotine: 10 cigarettes/day chocolate: none Family history: Father: Stomach cancer Mother: Uterine cancer Sister: Uterine cancer patient: malignant phyloides tumor Hormonal history: Menarche: 12 , breast fed: no, age at first : 18 menopause: hysterectomy 35; left ovaries, had uterine cancer ( did not have any radiation or chemotherapy) BCP: none hormones: none Surgical history: Hysterectomy Left breast mastectomy with implant reconstruction; malignant phylloides tumor Right breast biopsy Appendectomy Cholecystectomy Tumor removed from vocal cord Lipoma removed Carpal tunnel right wrist Hemorrhoidectomy bladder suspension Medical history: fibromyalgia neuropathy arthritis anxiety Spasm both arms into hands Social History: nicotine: 10 cigarettes per day Alcohol: GERD Marijuana: Negative - Constitutional Constitutional: Reports sweats - EENT Eyes: denies blurred vision, denies pain Ears: bilateral: tinnitus, deny: decreased hearing Ears, nose, mouth and throat: Reports headache, Denies sore throat - Breasts Breasts: bilateral: as per HPI - Cardiovascular Comment: 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 Cardiovascular: Reports chest pain, Denies shortness of breath - Respiratory Comment: 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/ shot every two months - Gastrointestinal Gastrointestinal: Reports diarrhea, Denies abdominal pain, Denies nausea, Denies vomiting - Genitourinary (Female) Genitourinary: Denies dysuria, Denies hematuria - Menstruation Menstruation: Reports postmenopausal - Musculoskeletal Comment: arthritis, fibromyalgia - Integumentary Comment: shingles once a month on her buttock Integumentary: Reports pruritus, Reports rash - Neurological Comment: CVA - Psychiatric Psychiatric: Reports anxiety - Endocrine Endocrine: Reports fatigue, Reports weight change - Hematologic/Lymphatic Comment: none - Allergic/Immunologic Allergic/Immunologic: Reports as per HPI Objective - Vital Signs Vital signs: Vital Signs Temp 98.1 F 10/10/21 11:59 Pulse 86 10/10/21 11:59 Resp 17 10/10/21 11:59 BP 177/70 10/10/21 11:59 Pulse Ox 97 10/10/21 11:59 FiO2 Intake & Output 10/09/21 10/10/21 10/10/21 18:59 06:59 18:59 Weight 86.183 kg - Exam BMI: 29.8 - Constitutional General appearance: Present: cooperative - EENT Eyes: Present: EOMI ENT: Present: hearing grossly normal - Neck Neck: Present: normal ROM - Respiratory Respiratory: bilateral: CTA - Cardiovascular Rhythm: regular Heart sounds: normal: S1, S2 - Integumentary Integumentary: Present: normal turgor - Musculoskeletal Musculoskeletal: Present: gait normal - Psychiatric Psychiatric: Present: A&O x's 3, appropriate affect, intact judgment & insight - Additional findings Additional findings: Chest wall: Right chest wall well-healed scar no evidence of any disease Right axilla: No adenopathy of concern Left chest wall: Well-healed scar no evidence of any disease Left axilla: No adenopathy of concern Assessment and Plan Assessment: Impression: Patient status post bilateral mastectomy history of malignant phyloides tumor left breast Plan: Follow-up one year for surveillance CC: Dr. Anderson
== END ==
LOC: WWCWWP 11:23
PROVIDERS: ATTEND Surgery
DX: Z08 Encounter for follow-up examination after completed treatment for malignant neoplasm (principal); F41.9 Anxiety disorder, unspecified; Z85.3 Personal history of malignant neoplasm of breast; Z90.13 Acquired absence of bilateral breasts and nipples; F17.210 Nicotine dependence, cigarettes, uncomplicated; Z86.73 Personal history of transient ischemic attack (TIA), and cerebral infarction without residual deficits

== ENCOUNTER → 2021-10-19 | Outpatient (CLI) | payer MEDICARE ==
--- NOTE | 2021-10-19 20:21 | MR ---
EXAMINATION TYPE: MR brain wo con DATE OF EXAM: 10/19/2021 COMPARISON: None HISTORY: Facial numbness, dizziness Multiplanar multiecho imaging of the brain with no contrast. Ventricles have normal size. There is no mass effect or midline shift. No sign of intracranial hemorr chrissy. Diffusion images show no sign of an acute infarct. The dalton and white matter structures have fa irly normal signal pattern. No evidence of cerebral edema. On the FLAIR images there are a few scatte red small areas of increased signal measuring up to 3 mm at the dalton-white matter junction of both ce rebral hemispheres. Total numbers less than 10. Corpus callosum is intact. Brainstem is intact. No evidence of posterior fossa mass. Sella turcica appears normal. No evidence of orbital mass. IMPRESSION: Tiny scattered white matter high signal foci are nonspecific and could relate to foci of microvascula r ischemia. No evidence of cortical infarct.
== END | disposition home or self-care (01) ==
LOC: RADMRIMAIN 14:15
PROVIDERS: ATTEND Family Medicine
DX: R20.0 Anesthesia of skin (principal)
CPT/HCPCS: 70551

== ENCOUNTER 2022-08-18 11:52 | Day surgery (SDC) | payer MEDICARE, OTHER ==
[2022-08-13 11:04] VITALS: BMI 31.3
[~2022-08-18 11:52] MED LIST changes: -DEXAMETHASONE SOD PHOSPHATE 4 MG/ML 1 ML VIAL IV ONE; -HEPARIN SODIUM,PORCINE/PF 5,000 UNIT/0.5 ML SYRINGE SQ PRN; -HYDROmorphone 0.5 MG/0.5 ML SYRINGE IVP PRN; -ONDANSETRON 4 MG/2 ML VIAL IVP ONE; -Pre Op ABX Message 1 EACH MISC MISCELLANE ONE
[2022-08-18 12:28] VITALS: RESP 16; TEMP 97.5
[2022-08-18] MEDS ORDERED: PROPOFOL 10 MG/ML 20 ML VIAL IV ONE (12:31)
--- NOTE | 2022-08-18 12:42 | P.OP ---
Date of Procedure: 08/18/22 Preoperative Diagnosis: GERD Postoperative Diagnosis: GERD Antral gastritis Hiatal hernia Esophagitis Procedure(s) Performed: EGD Anesthesia: MAC Surgeon: Yinka Benitez Pathology: other (Antrum, esophagus) Condition: stable Disposition: PACU Description of Procedure: The patient's placed on the endoscopy table in the lateral position. She received IV sedation. The gastroscope placed oropharynx passed in the esophagus into the stomach. Scope was placed through the pylorus. The first and second portion of the duodenum appeared normal. This appeared normal. The scope was brought back the antrum was minimal inflamed. A biopsies performed. The scope was then retroflexed and the remainder the stomach appeared normal. There was a moderate size fixed hiatal hernia. The GE junction was at 37 cm. The distal esophagus appeared inflamed. His was biopsied. The proximal esophagus appeared normal. The scope withdrawn for patient.
[2022-08-18 13:02] VITALS: BP 121/65; PULSE 95
== END 2022-08-18 13:34 | disposition home or self-care (01) ==
LOC: ORWHC2ENDO 11:52
PROVIDERS: ATTEND Surgery
DX: K29.50 Unspecified chronic gastritis without bleeding (principal); K21.00 Gastro-esophageal reflux disease with esophagitis, without bleeding; K44.9 Diaphragmatic hernia without obstruction or gangrene; F17.200 Nicotine dependence, unspecified, uncomplicated; J67.9 Hypersensitivity pneumonitis due to unspecified organic dust; M79.7 Fibromyalgia; M19.90 Unspecified osteoarthritis, unspecified site; Z90.710 Acquired absence of both cervix and uterus; Z90.49 Acquired absence of other specified parts of digestive tract; Z88.1 Allergy status to other antibiotic agents; Z90.12 Acquired absence of left breast and nipple; Z86.73 Personal history of transient ischemic attack (TIA), and cerebral infarction without residual deficits; Z85.3 Personal history of malignant neoplasm of breast
CPT/HCPCS: 43239; J2704; 88305

== ENCOUNTER → 2022-10-10 | Outpatient (CLI) | payer MEDICARE, OTHER ==
[2022-10-10 15:56] LABS: Basophils # (A) 0.02 X 10*3/uL (0.00-0.10); Basophils % (A) 0.2 %; Eosinophils # (A) 0 X 10*3/uL (0.04-0.35); Eosinophils % (A) 0 %; HCT 45.6 % (37.2-46.3); HGB 15.3 d/dL (12.0-15.0); Lymphocytes # (A) 2.59 X 10*3/uL (0.90-5.00); Lymphocytes % (A) 28.9 %; MCH 30.8 pg (27.0-32.0); MCHC 33.6 d/dL (32.0-37.0); MCV 91.8 FL (80.0-97.0); Mean Platelet Volume 10.7 FL (9.5-12.2); Monocytes # (A) 0.54 X 10*3/uL (0.20-1.00); NRBC Per 100 WBC 0 X 10*3/uL (0.00-0.01); Neutrophils # (A) 5.78 X 10*3/uL (1.80-7.70); Neutrophils % (A) 64.6 %; Platelet Count 211 X 10*3/uL (140-440); RBC 4.97 X 10*6/uL (4.10-5.20); RDW 13.3 % (11.5-14.5); WBC 8.96 X 10*3/uL (4.50-10.00)
== END | disposition home or self-care (01) ==
LOC: LABWHC1 08:48
PROVIDERS: ATTEND Surgery
DX: Z01.818 Encounter for other preprocedural examination (principal); K21.00 Gastro-esophageal reflux disease with esophagitis, without bleeding
CPT/HCPCS: 36415; 85025; 93005

== ENCOUNTER → 2022-10-10 | Outpatient (CLI) | payer MEDICARE, OTHER ==
[2022-10-10 09:47] VITALS: BP 138/80; PULSE 85; RESP 17; TEMP 97.9
--- NOTE | 2022-10-10 09:59 | P.PN ---
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 Anderson regarding a painful left breast implant. 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 An cooker casing was placed several months later and the implant was then placed in November 2011. The implant is a silicone shell which is filled with saline. Following placement of the implant approximately 2 months later the patient suffered from a cerebrovascular accident. She does not have any residual from the stroke. She had very blurred vision and passed out. They have not determine the cause of the stroke. She has subsequently developed fibromyalgia and neuropathy in her lower extremities. She has had multiple right breast biopsies, she has persistent pain and discomfort in the right breast. She has anxiety related to the right breast that she will develop a tumor in the side. She is not interested in continued surveillance and would like to have a right breast mastectomy: to match she wishes removal of the left breast implant so she will be symmetric. We have discussed the prophylactic mastectomy does not increase survival, she understands this but is very concerned about the surveillance and the asymmetry and wishes it to be removed. I've also discussed that prophylactic mastectomy has risks associated with it which include bleeding, infection, reaction to the anesthetic. Again she understands and wishes to proceed. The patient states she has persistent burning related to the implant. The pain is constant. It is also changed in contour. She cannot lay on her left side secondary to the pain, and it causes her to be nauseated. She cannot find clothes to fit correctly. The patient developed a lump in her right breast for which she had an excisional biopsy in 2017. She was told it was benign. She does not have any new lumps masses or nodules in either breast. She has not had a recent mammogram. She underwent a right breast mammogram on . This was followed by a right breast ultrasound. Initially there was recommendation for core biopsy however on attempted core biopsy on the procedure was canceled with six-month follow-up of the right breast recommended instead. She underwent a left breast implant removal and right mastectomy on 04-09-21. 10-10-21 This time she has no complaints related to her chest wall. She is not complaining of any lumps masses or nodules on her chest wall. 10-10-22 Patient is at no complaints related to her chest wall is at this time. She is not complaining of any lumps masses or nodules of concern. She is very happy she had the implant removed and the other breast removed as well. Caffeine: 3 cups/day nicotine: 10 cigarettes/day chocolate: none Family history: Father: Stomach cancer Mother: Uterine cancer Sister: Uterine cancer patient: malignant phyloides tumor Hormonal history: Menarche: 12 , breast fed: no, age at first : 18 menopause: hysterectomy 35; left ovaries, had uterine cancer ( did not have any radiation or chemotherapy) BCP: none hormones: none Surgical history: Hysterectomy Left breast mastectomy with implant reconstruction; malignant phylloides tumor Right breast biopsy Appendectomy Cholecystectomy Tumor removed from vocal cord Lipoma removed Carpal tunnel right wrist Hemorrhoidectomy bladder suspension implant removal, right mastectomy Medical history: fibromyalgia neuropathy arthritis anxiety Spasm both arms into hands GERD Social History: nicotine: 10 cigarettes per day Alcohol: GERD Marijuana: Negative - Constitutional Constitutional: Reports sweats - EENT Eyes: denies blurred vision, denies pain Ears: bilateral: tinnitus, deny: decreased hearing Ears, nose, mouth and throat: Reports headache, Denies sore throat - Breasts Breasts: bilateral: as per HPI - Cardiovascular Comment: 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 Cardiovascular: Reports chest pain, Denies shortness of breath - Respiratory Comment: 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/ shot every two months - Gastrointestinal Gastrointestinal: Reports diarrhea, Denies abdominal pain, Denies nausea, Denies vomiting - Genitourinary (Female) Genitourinary: Denies dysuria, Denies hematuria - Menstruation Menstruation: Reports postmenopausal - Musculoskeletal Comment: arthritis, fibromyalgia - Integumentary Comment: shingles once a month on her buttock Integumentary: Reports pruritus, Reports rash - Neurological Comment: CVA - Psychiatric Psychiatric: Reports anxiety - Endocrine Endocrine: Reports fatigue, Reports weight change - Hematologic/Lymphatic Comment: none - Allergic/Immunologic Allergic/Immunologic: Reports as per HPI Objective - Constitutional General appearance: Present: cooperative - EENT Eyes: Present: EOMI ENT: Present: hearing grossly normal - Neck Neck: Present: normal ROM - Respiratory Details: wheezing right lung base Respiratory: left: CTA - Cardiovascular Heart sounds: normal: S1, S2 - Gastrointestinal General gastrointestinal: Present: soft - Integumentary Integumentary: Present: normal turgor - Musculoskeletal Musculoskeletal: Present: gait normal - Psychiatric Psychiatric: Present: A&O x's 3, appropriate affect, intact judgment & insight - Additional findings Additional findings: Chest wall: Right chest wall well-healed scar no evidence of any disease Right axilla: No adenopathy of concern Left chest wall: Well-healed scar no evidence of any disease Left axilla: No adenopathy of concern Assessment and Plan Assessment: Impression: Patient status post bilateral mastectomy history of malignant phyloides tumor left breast Plan: Follow-up one year for surveillance CC: Dr. Anderson
== END ==
LOC: WWCWWP 09:35
PROVIDERS: ATTEND Surgery
DX: Z85.3 Personal history of malignant neoplasm of breast (principal); Z90.13 Acquired absence of bilateral breasts and nipples; M79.7 Fibromyalgia; F41.9 Anxiety disorder, unspecified; K21.9 Gastro-esophageal reflux disease without esophagitis; M19.90 Unspecified osteoarthritis, unspecified site; G62.9 Polyneuropathy, unspecified; M62.838 Other muscle spasm; Z88.1 Allergy status to other antibiotic agents; Z87.891 Personal history of nicotine dependence

== ENCOUNTER 2022-10-14 06:56 | Day surgery (SDC) | payer MEDICARE, OTHER ==
[~2022-10-14 06:56] MED LIST changes: +ACETAMINOPHEN TAB 500 MG TAB PO PRN; +DEXAMETHASONE SOD PHOSPHATE 4 MG/ML 1 ML VIAL IV ONE; +HEPARIN SODIUM,PORCINE/PF 5,000 UNIT/0.5 ML SYRINGE SQ PRN; -LACTATED RINGERS 1,000 ML IV SCH; +LIDOCAINE 1% (10MG/ML) FOR IV START INTRADERMA PRN; +SCOPOLAMINE 1 MG/72 HR PATCH TRANSDERM ONE; +droPERidol 5 MG/2 ML VIAL IVP ONE
[2022-10-14] MEDS ORDERED: ONDANSETRON 4 MG/2 ML VIAL IVP PRN ×2 (07:00→09:58)
[2022-10-14] MEDS ORDERED: HYDROmorphone 0.5 MG/0.5 ML SYRINGE IVP PRN (07:00)
[2022-10-14] MEDS: LACTATED RINGERS 1,000 ML IV SCH (07:35)
[2022-10-14] MEDS ORDERED: MIDAZOLAM 2 MG/2 ML VIAL IVP ONE (07:48)
[2022-10-14] MEDS ORDERED: LABETALOL 5 MG/ML VIAL MDV ONE (08:38)
[2022-10-14] MEDS ORDERED: SUCCINYLCHOLINE CHLORIDE 200 MG/10 ML VIAL IV ONE (08:38)
[2022-10-14] MEDS ORDERED: fentaNYL (PF) 50 MCG/ML 2 ML AMP ONE (08:38)
[2022-10-14] MEDS ORDERED: PROPOFOL 10 MG/ML 20 ML VIAL IV ONE (08:38)
[2022-10-14] MEDS ORDERED: ROCURONIUM 10 MG/ML (5 ML VIAL) IV ONE (08:38)
[2022-10-14] MEDS ORDERED: MIDAZOLAM 2 MG/2 ML VIAL ONE (08:38)
[2022-10-14] MEDS ORDERED: NEOSTIGMINE 1 MG/ML 10 ML VIAL ONE (08:38)
[2022-10-14] MEDS ORDERED: GLYCOPYRROLATE 0.2 MG/ML 2 ML VIAL ONE (08:38)
[2022-10-14] MEDS ORDERED: LIDOCAINE 2% INJ 20 MG/ML (2 ML VIAL) ONE (08:38)
[2022-10-14] MEDS ORDERED: BUPIVACAINE (PF) 0.25% 30 ML VIAL SQ ONE (09:09)
[2022-10-14] MEDS ORDERED: LACTATED RINGERS 1,000 ML IV ONE (09:19)
[2022-10-14] MEDS ORDERED: HYDROmorphone 1 MG/ML 1 ML SYRINGE IVP PRN (09:58)
--- NOTE | 2022-10-14 09:58 | P.OP ---
Date of Procedure: 10/14/22 Preoperative Diagnosis: GERD Hiatal hernia Postoperative Diagnosis: GERD Hiatal hernia Procedure(s) Performed: Laparoscopic Austin fundal plication Anesthesia: JUS Surgeon: Yinka Benitez Estimated Blood Loss (ml): 5 Pathology: none sent Condition: stable Disposition: PACU Description of Procedure: HThe patient was placed on the operating table in the supine position. The patient received general anesthesia. And was placed in dorsal lithotomy position. The patient was prepped and draped in the usual sterile fashion. The skin incision sites were anesthetized with 1% local Xylocaine. The skin was incised in the left periumbilical area and then using a blade less 5 mm trocar under direct visualization panel cavity was entered. After adequate insufflation the laparoscope was then placed into the peritoneal cavity. Next a 5 mm trochars placed in the right epigastric position. Another 5 millimeter trocar the right lateral position. Another 5 millimeter trocar in the left lateral position a 5 mm trocar is placed in the left epigastric position. And then the initial 5 mm trocar was exchanged for a 10 mm trocar. The left lateral lobe liver was retracted. The hernia was seen. The crural defect was then dissected using the Harmonic scissors device. A 360 crural dissection was performed the esophagus stomach was reduced back into the peritoneal Cavity. The crural defect was then closed using 2-0 Ethibond suture. Next the fundus of the stomach was mobilized using the [place] scissors device. and then a 58- [place] bougie dilator was placed oropharynx passed into the esophagus and stomach the fundal plication wrap was then performed by grasping the fundus posteriorly and bringing it around the esophagus and stomach fundoplication was then performed using 2-0 Ethibond suture. Care was taken that the fundal location rested over top of the intra-abdominal esophagus. There was no injury seen to the stomach or esophagus. The dilator was then withdrawn. The abdomen was irrigated there is no bleeding seen. The trochars were then withdrawn and then skin incision sites were closed using 3-0 Monocryl suture Steri-Strips are applied. Patient thought procedure well and sent to recovery room in stable condition.
[2022-10-14] MEDS: METOCLOPRAMIDE 5 MG/ML 2 ML VIAL IVP SCH ×2 (12:26→18:12)
[2022-10-14 15:25] VITALS: BMI 30.9
[2022-10-15] MEDS: METOCLOPRAMIDE 5 MG/ML 2 ML VIAL IVP SCH ×3 (00:11→13:18)
[2022-10-15] MEDS: LACTATED RINGERS 1,000 ML IV SCH ×2 (00:14→08:58)
[2022-10-15 07:37] VITALS: RESP 20
[2022-10-15 10:29] LABS: HCT 42.3 % (34.0-46.0); HGB 14.3 gm/dL (11.4-16.0); MCH 31.5 pg (25.0-35.0); MCHC 33.7 g/dL (31.0-37.0); MCV 93.4 fL (80.0-100.0); Platelet Count 176 k/uL (150-450); RBC 4.53 m/uL (3.80-5.40); RDW 13.1 % (11.5-15.5); WBC 12.9 k/uL (3.8-10.6)
[2022-10-15 10:54] LABS: African American GFR (CKD) >90 (>60 ml/min/1.73 sqM); Anion Gap 6 mmol/L; Blood Urea Nitrogen 13 mg/dL (7-17); Calcium 8.6 mg/dL (8.4-10.2); Carbon Dioxide 28 mmol/L (22-30); Chloride 106 mmol/L (98-107); Glucose 105 mg/dL (74-99); Non-African American GFR(CKD) 79 (>60 ml/min/1.73 sqM); Potassium 3.9 mmol/L (3.5-5.1); Sodium 140 mmol/L (137-145)
[2022-10-15] MEDS ORDERED: ALBUTEROL NEBULIZED 2.5 MG/3 ML INHALATION PRN ×2 (11:36)
[2022-10-15] MEDS ORDERED: FLUTICASONE 220 MCG INHALER INHALATION SCH (11:45)
--- NOTE | 2022-10-15 13:19 | P.DS ---
Providers Expected date of discharge: 10/15/22 Attending physician: Yinka Benitez Consults: 10/14/22 09:58 Consult Physician Routine Consulting Provider: Franck Anderson Consult Reason/Comments: Medical management Do you want consulting provider notified?: Yes Primary care physician: Franck Anderson MD Hospital Course: Discharge diagnosis 1. GERD and hiatal hernia status post laparoscopic Austin fundoplication Hospital course This is a 57-year-old female with a known history of GERD and hiatal hernia. She is status post laparoscopic [place] fundoplication. She tolerated surgery well. She's tolerated diet. Her pain is controlled. She has been up and ambulating. Incision sites clean dry and intact. She is stable for discharge. She has been cleared by Dr. Benitez for discharge. Please refer to chart for any further details. Physician Mine [employer]airer note has been reviewed by physician. Signing provider agrees with the documented findings, assessment, and plan of care. Patient Condition at Discharge: Stable Plan - Discharge Summary Discharge Rx Participant: Yes New Discharge Prescriptions: New Acetaminophen Tab [Tylenol Tab] 650 mg PO Q4H PRN #30 tablet PRN Reason: Pain Continue Albuterol Inhaler [Ventolin Hfa Inhaler] 2 puff INHALATION QID PRN PRN Reason: Shortness Of Breath Benralizumab [Fasenra] 30 mg INJ Q60D Albuterol Nebulized [Ventolin Nebulized] 2.5 mg INHALATION DIRECTED PRN PRN Reason: Shortness Of Breath Fluticasone Propionate 220 Mcg [Flovent 220 Mcg Inhaler] 2 puff INHALATION BID Omeprazole 40 mg PO QAM Discharge Medication List Albuterol Inhaler [Ventolin Hfa Inhaler] 2 puff INHALATION QID PRN 12/09/19 [History] Benralizumab [Fasenra] 30 mg INJ Q60D 01/21/21 [History] Omeprazole 40 mg PO QAM 04/04/21 [History] Albuterol Nebulized [Ventolin Nebulized] 2.5 mg INHALATION DIRECTED PRN 10/09/22 [History] Fluticasone Propionate 220 Mcg [Flovent 220 Mcg Inhaler] 2 puff INHALATION BID 10/09/22 [History] Acetaminophen Tab [Tylenol Tab] 650 mg PO Q4H PRN #30 tablet 10/15/22 [Rx] Follow up Appointment(s)/Referral(s): Franck Anderson MD [Primary Care Provider] - 1 Week Yinka Benitez MD [STAFF PHYSICIAN] - 1 Week Activity/Diet/Wound Care/Special Instructions: No lifting over 10 pounds You may shower. No soaking or tub baths for 2 weeks Very light activity until you are reevaluated at your follow up appointment with your surgeon Continue Full liquid diet until seen by surgeon Discharge Disposition: HOME SELF-CARE
[2022-10-15 13:23] VITALS: BP 135/72; PULSE 98; TEMP 98.5
--- NOTE | 2022-10-15 16:01 | P.CONS ---
History of Present Illness - Reason for Consult Consult date: 10/15/22 Medical management Requesting physician: Yinka Benitez - Chief Complaint Gastroesophageal reflux disease and hiatal hernia - History of Present Illness This is a pleasant 57-year-old female with past medical history significant for gastroesophageal reflux disease and hiatal hernia. Patient is status post laparoscopic Sanchez fundoplication. Tolerated procedure well. Pain controlled. Denies chest pain, palpitations or shortness of breath. Tolerating diet. Denies nausea vomiting or diarrhea. Denies lightheadedness, dizziness or focal deficits. Afebrile, WBC 12.9. Review of Systems Constitutional: Denied any fatigue denied any fever. Cardio vascular: denied any chest pain, palpitations Gastrointestinal denied any nausea vomiting Pulmonary: Denied any shortness of breath cough Neurologic denied any new focal deficits ROS Statement: Those systems with pertinent positive or pertinent negative responses have been documented in the HPI. ROS Other: All systems not noted in ROS Statement are negative. Past Medical History Past Medical History: Cancer, CVA/TIA, Fibromyalgia, GERD/Reflux, Osteoarthritis (OA), Respiratory Disorder Additional Past Medical History / Comment(s): Hypersensitivity Pneumonitis(Immune System Disorder). Dr Sulema Anderson monitoring area under rib cage for mass. Hx CVA 2011, no residual effect, hx left breast cancer 2010, hx uterine cancer 2000. HIATAL HERNIA History of Any Multi-Drug Resistant Organisms: None Reported Past Surgical History: Appendectomy, Breast Surgery, Cholecystectomy, Hysterectomy, Orthopedic Surgery Additional Past Surgical History / Comment(s): Left breast mastectomy with reconstruction, vocal cord surgery with chin lipoma removal, right carpal tunnel release, left breast implant removed and right breast mastectomy. EGD, COLONOSCOPY Past Anesthesia/Blood Transfusion Reactions: No Reported Reaction, Motion Sickness Past Psychological History: Anxiety Smoking Status: Current every day smoker Past Alcohol Use History: None Reported Additional Past Alcohol Use History / Comment(s): Has been a smoker for 40+ years, 1 ppd, down to 1/2 ppd currently. Past Drug Use History: None Reported - Past Family History Father Family Medical History: Cancer Additional Family Medical History / Comment(s): Stomach cancer. Mother Family Medical History: Cancer Additional Family Medical History / Comment(s): Uterine cancer. Sister(s) Family Medical History: Cancer Additional Family Medical History / Comment(s): Uterine cancer. Medications and Allergies Home Medications Medication Instructions Recorded Confirmed Type Albuterol Inhaler [Ventolin Hfa 2 puff INHALATION QID PRN 12/09/19 10/14/22 History Inhaler] Benralizumab [Fasenra] 30 mg INJ Q60D 01/21/21 10/14/22 History Omeprazole 40 mg PO QAM 04/04/21 10/14/22 History Albuterol Nebulized [Ventolin 2.5 mg INHALATION DIRECTED PRN 10/09/22 10/14/22 History Nebulized] Fluticasone Propionate 220 Mcg 2 puff INHALATION BID 10/09/22 10/14/22 History [Flovent 220 Mcg Inhaler] Acetaminophen Tab [Tylenol Tab] 650 mg PO Q4H PRN #30 tablet 10/15/22 Rx Allergies Allergy/AdvReac Type Severity Reaction Status Date / Time doxycycline Allergy Anaphylaxis Verified 10/14/22 07:14 Physical Exam Vitals: Vital Signs Temp Pulse Resp BP Pulse Ox 10/15/22 07:36 98.8 F 106 H 20 134/71 99 10/15/22 01:23 98.9 F 88 18 104/53 93 L 10/14/22 19:12 99.2 F 89 18 141/75 92 L 10/14/22 13:14 97.5 F L 83 18 143/76 93 L 10/14/22 11:55 97.8 F 80 18 154/80 88 L Intake and Output 10/14/22 10/15/22 10/15/22 22:59 06:59 14:59 Intake Total 120 1000 Output Total 1450 Balance -1330 1000 Intake: Intake, IV Titration 120 Amount Lactated Ringers 1,000 ml 120 @ 0 mls/hr IV .[facility] Rx#:[id number] Oral 1000 Output: Urine 1450 Other: # Voids 2 2 Weight 89.5 kg PHYSICAL EXAM: VITAL SIGNS: [As above] GENERAL: Sitting up in bed, no acute distress HEENT: Normocephalic, Conjunctivae normal. eyes normal. NECK: Supple, No JVD. CARDIOVASCULAR: S1, S2 regular.. No murmur RESPIRATION: Equal air entry Breath sounds diminished in the bases. ABDOMEN: Soft, nondistended, status post surgery LEGS: No edema. no swelling PSYCHIATRY: Alert and oriented X3, mood and affect normal. NERVOUS SYSTEM: Cranial N 2-12 grossly normal. No focal deficits. Strength and sensation grossly intact.. Skin: Warm and dry, no rash Results CBC & Chem 7: 10/15/22 10:13 10/15/22 10:13 Labs: Abnormal Lab Results - Last 24 Hours (Table) 10/15/22 10/15/22 Range/Units 10:13 10:13 WBC 12.9 H (3.8-10.6) k/uL Glucose 105 H (74-99) mg/dL Assessment and Plan Assessment: GERD and hiatal hernia status post laparoscopic [place] fundoplication Plan: Continue on current medication regime ,monitoring and symptomatic treatment. Pain management as per general surgery.Discharge planning in progress as per primary. Maintain aggressive pulmonary toileting. Follow-up with PCP in 1 week. The impression and plan of care has been dictated as directed. : I performed a history and examination of this patient, discussed the same with the dictator. I agree with the dictator's note ,documented as a scribe. Any additional findings or plans will be noted.
[2022-10-16] MEDS ORDERED: PANTOPRAZOLE 40 MG TABLET PO SCH (09:00)
== END 2022-10-15 13:55 | disposition home or self-care (01) ==
LOC: OR 06:56 → 5NMEDONC 09:40 → OR 10-15 13:55
PROVIDERS: ATTEND Surgery
DX: K21.9 Gastro-esophageal reflux disease without esophagitis (principal); K44.9 Diaphragmatic hernia without obstruction or gangrene; M79.7 Fibromyalgia; M19.90 Unspecified osteoarthritis, unspecified site; F17.210 Nicotine dependence, cigarettes, uncomplicated; F41.9 Anxiety disorder, unspecified; Z86.73 Personal history of transient ischemic attack (TIA), and cerebral infarction without residual deficits; Z90.49 Acquired absence of other specified parts of digestive tract; Z90.710 Acquired absence of both cervix and uterus; Z98.890 Other specified postprocedural states; Z90.13 Acquired absence of bilateral breasts and nipples; Z79.51 Long term (current) use of inhaled steroids; Z79.899 Other long term (current) drug therapy; Z88.1 Allergy status to other antibiotic agents
CPT/HCPCS: 86900; 86901; 80048; 85027; 86850; 43280; J2250; J0330; J1100; J2710; J2765 ×2; J0690; J2405; J3010; J2704; J1170; J1644; J2001

== ENCOUNTER 2023-02-05 09:27 | Day surgery (SDC) | payer MEDICARE, OTHER ==
[~2023-02-05 09:27] MED LIST changes: -ACETAMINOPHEN TAB 500 MG TAB PO PRN; -DEXAMETHASONE SOD PHOSPHATE 4 MG/ML 1 ML VIAL IV ONE; -HEPARIN SODIUM,PORCINE/PF 5,000 UNIT/0.5 ML SYRINGE SQ PRN; +LACTATED RINGERS 1,000 ML IV SCH; +ONDANSETRON 4 MG/2 ML VIAL IVP PRN; -SCOPOLAMINE 1 MG/72 HR PATCH TRANSDERM ONE; -droPERidol 5 MG/2 ML VIAL IVP ONE
[2023-02-05 10:06] VITALS: TEMP 97.4
[2023-02-05] MEDS ORDERED: PROPOFOL 10 MG/ML 20 ML VIAL IV ONE (10:45)
[2023-02-05] MEDS ORDERED: LIDOCAINE 2% (PF) 20 MG/ML 5 ML VIAL ONE (10:45)
--- NOTE | 2023-02-05 10:56 | P.OP ---
Date of Procedure: 02/05/23 Preoperative Diagnosis: Dysphagia Postoperative Diagnosis: Dysphagia Procedure(s) Performed: EGD with balloon dilatation Anesthesia: MAC Surgeon: Yinka Benitez Pathology: none sent Condition: stable Disposition: PACU Description of Procedure: The patient's placed on the endoscopy table in the lateral position. She received IV sedation. The gastro-/oropharynx passed in the esophagus. Scope was then placed through the GE junction and into the stomach. Scope placement pylorus. First second portion duodenum appeared normal. Scope was then brought back. There is no significant hiatal hernia. The gastric was easily placed. Due to the patient's symptoms of dysphagia a 20 mm balloon was placed across the GE junction. This was held in position for 3 minutes. There was no injury seen to the mucosa. Scope was easily placed on the GE junction was performed. The scope was then withdrawn.
[2023-02-05 11:31] VITALS: RESP 16
[2023-02-05 11:44] VITALS: BP 129/74; PULSE 78
== END 2023-02-05 12:09 | disposition home or self-care (01) ==
LOC: ORWHC2ENDO 09:27
PROVIDERS: ATTEND Surgery
DX: R13.10 Dysphagia, unspecified (principal); K21.00 Gastro-esophageal reflux disease with esophagitis, without bleeding; F17.210 Nicotine dependence, cigarettes, uncomplicated; Z85.3 Personal history of malignant neoplasm of breast; Z90.49 Acquired absence of other specified parts of digestive tract; Z85.41 Personal history of malignant neoplasm of cervix uteri; Z86.73 Personal history of transient ischemic attack (TIA), and cerebral infarction without residual deficits; Z79.899 Other long term (current) drug therapy
CPT/HCPCS: 43249; J2704; J2001; C1726

== ENCOUNTER → 2023-10-15 | Outpatient (CLI) | payer MEDICARE, OTHER ==
[2023-10-15 09:27] VITALS: BP 131/71; PULSE 94; RESP 17; TEMP 97.9
--- NOTE | 2023-10-15 09:54 | P.PN ---
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 Anderson regarding a painful left breast implant. 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 An computer publisher was placed several months later and the implant was then placed in November 2011. The implant is a silicone shell which is filled with saline. Following placement of the implant approximately 2 months later the patient suffered from a cerebrovascular accident. She does not have any residual from the stroke. She had very blurred vision and passed out. They have not determine the cause of the stroke. She has subsequently developed fibromyalgia and neuropathy in her lower extremities. She has had multiple right breast biopsies, she has persistent pain and discomfort in the right breast. She has anxiety related to the right breast that she will develop a tumor in the side. She is not interested in continued surveillance and would like to have a right breast mastectomy: to match she wishes removal of the left breast implant so she will be symmetric. We have discussed the prophylactic mastectomy does not increase survival, she understands this but is very concerned about the surveillance and the asymmetry and wishes it to be removed. I've also discussed that prophylactic mastectomy has risks associated with it which include bleeding, infection, reaction to the anesthetic. Again she understands and wishes to proceed. The patient states she has persistent burning related to the implant. The pain is constant. It is also changed in contour. She cannot lay on her left side secondary to the pain, and it causes her to be nauseated. She cannot find c lothes to fit correctly. The patient developed a lump in her right breast for which she had an excisional biopsy in 2017. She was told it was benign. She does not have any new lumps masses or nodules in either breast. She has not had a recent mammogram. She underwent a right breast mammogram on . This was followed by a right breast ultrasound. Initially there was recommendation for core biopsy however on attempted core biopsy on the procedure was canceled with six-month follow-up of the right breast recommended instead. She underwent a left breast implant removal and right mastectomy on 04-09-21. 10-10-21 This time she has no complaints related to her chest wall. She is not complaining of any lumps masses or nodules on her chest wall. 10-10-22 Patient is at no complaints related to her chest wall is at this time. She is not complaining of any lumps masses or nodules of concern. She is very happy she had the implant removed and the other breast removed as well. 10-15-23 She has no complaints of any lumps masses or nodules related to her chest wall. 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 She was recently treated with a course of steroids. Caffeine: 3 cups/day nicotine: 10 cigarettes/day chocolate: none Family history: Father: Stomach cancer Mother: Uterine cancer Sister: Uterine cancer patient: malignant phyloides tumor Hormonal history: Menarche: 12 , breast fed: no, age at first : 18 menopause: hysterectomy 35; left ovaries, had uterine cancer ( did not have any radiation or chemotherapy) BCP: none hormones: none Surgical history: Hysterectomy Left breast mastectomy with implant reconstruction; malignant phylloides tumor Right breast biopsy Appendectomy Cholecystectomy Tumor removed from vocal cord Lipoma removed Carpal tunnel right wrist Hemorrhoidectomy bladder suspension implant removal, right mastectomy Medical history: fibromyalgia neuropathy arthritis anxiety Spasm both arms into hands GERD hypersensitivity pneumonitis was recently treated with steroids Social History: nicotine: 10 cigarettes per day Alcohol: GERD Marijuana: Negative - Constitutional Constitutional: Reports sweats - EENT Eyes: denies blurred vision, denies pain Ears: bilateral: tinnitus, deny: decreased hearing Ears, nose, mouth and throat: Reports headache, Denies sore throat - Breasts Breasts: bilateral: as per HPI - Cardiovascular Comment: 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 Cardiovascular: Reports chest pain, Denies shortness of breath - Respiratory Comment: 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/ shot every two months - Gastrointestinal Gastrointestinal: Reports diarrhea, Denies abdominal pain, Denies nausea, Denies vomiting - Genitourinary (Female) Genitourinary: Denies dysuria, Denies hematuria - Menstruation Menstruation: Reports postmenopausal - Musculoskeletal Comment: arthritis, fibromyalgia - Integumentary Comment: shingles once a month on her buttock Integumentary: Reports pruritus, Reports rash - Neurological Comment: CVA - Psychiatric Psychiatric: Reports anxiety - Endocrine Endocrine: Reports fatigue, Reports weight change - Hematologic/Lymphatic Comment: none - Allergic/Immunologic Allergic/Immunologic: Reports as per HPI Objective - Vital Signs Vital signs: Vital Signs Temp 97.9 F 10/15/23 09:26 Pulse 94 10/15/23 09:26 Resp 17 10/15/23 09:26 BP 131/71 10/15/23 09:26 Pulse Ox 98 10/15/23 09:26 FiO2 Intake & Output 10/14/23 10/15/23 10/15/23 18:59 06:59 18:59 Weight 77.111 kg - Constitutional General appearance: Present: cooperative - EENT Eyes: Present: EOMI ENT: Present: hearing grossly normal - Neck Neck: Present: normal ROM - Respiratory Details: wheezing left lung base Respiratory: bilateral: CTA - Cardiovascular Heart sounds: normal: S1, S2 - Integumentary Integumentary: Present: normal turgor - Musculoskeletal Musculoskeletal: Present: gait normal - Psychiatric Psychiatric: Present: A&O x's 3, appropriate affect, intact judgment & insight - Additional findings Additional findings: Chest wall: Right chest wall well-healed scar no evidence of any disease Right axilla: No adenopathy of concern Left chest wall: Well-healed scar no evidence of any disease Left axilla: No adenopathy of concern Assessment and Plan Assessment: Impression: Patient status post bilateral mastectomy history of malignant phyloides tumor left breast wheezing left lung base Plan: CXR; PA and Lat follow up after above and if OK follow up in one year encouraged to stop smoking CC: Dr. Anderson
--- NOTE | 2023-10-15 11:12 | XR ---
EXAMINATION TYPE: XR chest 2V DATE OF EXAM: 10/15/2023 COMPARISON: NONE HISTORY: Chest pain TECHNIQUE: Frontal and lateral views of the chest are obtained. FINDINGS: There is no focal air space opacity. No evidence for pneumothorax. No pleural effusion. The cardiac silhouette size is within normal limits. The osseous structures are grossly intact. IMPRESSION: 1. No acute cardiopulmonary process.
== END ==
LOC: WWCWWP 08:53
PROVIDERS: ATTEND Surgery
DX: R06.2 Wheezing (principal); F17.210 Nicotine dependence, cigarettes, uncomplicated; Z90.13 Acquired absence of bilateral breasts and nipples; Z85.3 Personal history of malignant neoplasm of breast; Z88.1 Allergy status to other antibiotic agents
CPT/HCPCS: 71046

== ENCOUNTER → 2024-01-15 | Outpatient (CLI) | payer MEDICARE, OTHER ==
--- NOTE | 2024-01-15 11:05 | CA ---
Exercise Nuclear Stress Test Report Name: Karol Nunez Exam Date: 01/15/2024 09:46 Exam Location: [facility] Ht (in): 67 Wt (lb): 172 BSA: 1.90 Ordering Phys: Franck Anderson MD Referring Phys: Franck Anderson MD Technologist: Per Henderson Age: 58 Gender: F : 1965 Procedure CPT: Indications: I47.10 SUPRAVENTRICULAR TACHYCARDIA, UNSPECIFIED ICD-10 Codes: Patient History: Medications: ALBUTEROL Meds past 24 hrs: Pretest Chest Pain: STRESS TEST Luis Protocol Exercise Duration (min:sec): 06:[address] Depressions (mm): Angina Score: Ely Score: Resting HR (bpm): 89 Peak HR (bpm): 150 Resting BP (mmHg): 143 / 84 Peak BP (mmHg): 199 / 79 MPHR: 161 Target HR: 137 % MPHR: 93 METS: 8.6 Total Dose: Peak Dose: Atropine: Double Product: 81158 BP Response: Stress Termination: Reached target heart rate Stress Symptoms: No chest pain or symptoms Stress Summary: ECG ANALYSIS Resting ECG: Normal sinus rhythm normal axis normal intervals Stress ECG: Patient exercised on Luis protocol for 7 minutes achieving 93% of predicted maximal heart rate without chest pain or diagnostic ST segment depression. There was [address] segment depression noted in inferolateral leads CONCLUSIONS About average exercise tolerance Abnormal stress test by EKG criteria Dr. Morteza Butterfield MD (Electronically Signed) Final Date: 15 January 2024 11:04
--- NOTE | 2024-01-15 13:41 | NM ---
EXAMINATION TYPE: NM stress cardiolite complete DATE OF EXAM: 01/15/2024 COMPARISON: NONE CLINICAL INDICATION: Female, 58 years old with history of I47.10 SUPRAVENTRICULAR TACHYCARDIA, UNSPEC IFIED; TECHNIQUE: After the intravenous administration of 9.5 mCi Tc 99m Sestamibi - Rest images obtained 4 5 minutes post injection. The patient exercised using a DEWEY protocol and 1 minute prior to peak e xercise was injected with 25.6 mCi Tc 99m Sestamibi - Stress images obtained 10 minutes post injectio n. FINDINGS: Targeted heart rate was achieved during performance of the study. Review of stress and rest SPECT gagan ges demonstrates no distinct evidence perfusion abnormality. Fixed defect inferior wall could reflec t attenuation artifact versus remote insult. Gated analysis shows normal wall motion with an estimate d left ventricular ejection fraction of 71 %. IMPRESSION: No scintigraphic evidence for reversible ischemia [facility] 01/15/2024 1:38 PM
== END | disposition home or self-care (01) ==
LOC: RADNMMAIN 07:49
PROVIDERS: ATTEND Family Medicine
DX: I47.10 Supraventricular tachycardia, unspecified (principal)
CPT/HCPCS: 78452; 93017

== ENCOUNTER → 2024-03-17 | Day surgery (SDC) | payer MEDICARE, OTHER ==
[~2024-03-17] MED LIST changes: -LACTATED RINGERS 1,000 ML IV SCH; -ONDANSETRON 4 MG/2 ML VIAL IVP PRN; +PROPOFOL 10 MG/ML 20 ML VIAL IV ONE
[2024-03-17] MEDS: IV FLUID CONTINUATION 1,000 ML IV ONE (09:15)
[2024-03-17 09:21] VITALS: TEMP 97.3
[2024-03-17] MEDS: LACTATED RINGERS 1,000 ML IV SCH (09:25)
--- NOTE | 2024-03-17 10:06 | P.GSHP ---
History of Present Illness H&P Date: 03/17/24 Chief Complaint: Screening colonoscopy This is a 58-year-old female presents today for screening colonoscopy. Patient denies any significant GI complaints. Past Medical History Past Medical History: Asthma, Cancer, CVA/TIA, Fibromyalgia, Osteoarthritis (OA), Respiratory Disorder, Skin Disorder Additional Past Medical History / Comment(s): Hypersensitivity Pneumonitis(Immune System Disorder). Hx CVA 2011, no residual effect, hx left breast cancer 2010, hx uterine cancer 2000. recent hx of shingles, recent discomfort and burning to abdomen. blood when wiping. History of Any Multi-Drug Resistant Organisms: None Reported Past Surgical History: Appendectomy, Breast Surgery, Cholecystectomy, Hernia Repair, Hysterectomy, Orthopedic Surgery Additional Past Surgical History / Comment(s): Left breast mastectomy with reconstruction, vocal cord surgery with chin lipoma removal, right carpal tunnel release, left breast implant removed and right breast mastectomy. EGD, COLONOSCOPY, hiatal hernia Past Anesthesia/Blood Transfusion Reactions: No Reported Reaction Smoking Status: Current every day smoker - Past Family History Father Family Medical History: Cancer Additional Family Medical History / Comment(s): Stomach cancer. Mother Family Medical History: Cancer Additional Family Medical History / Comment(s): Uterine cancer. Sister(s) Family Medical History: Cancer Additional Family Medical History / Comment(s): Uterine cancer. Medications and Allergies Home Medications Medication Instructions Recorded Confirmed Type Albuterol Inhaler [Ventolin Hfa 2 puff INHALATION QID PRN 12/09/19 03/17/24 History Inhaler] Albuterol Nebulized [Ventolin 2.5 mg INHALATION DIRECTED PRN 10/09/22 03/17/24 History Nebulized] Fluticasone Propionate 220 Mcg 2 puff INHALATION BID 10/09/22 03/17/24 History [Flovent 220 Mcg Inhaler] Acetaminophen Tab [Tylenol Tab] 650 mg PO Q4H PRN #30 tablet 10/15/22 03/17/24 Rx Tezepelumab-Ekko [Tezspire] 210 mg SQ Q30D 03/03/24 03/15/24 History Venlafaxine HCl [Effexor] 37.5 mg PO DAILY 03/03/24 03/17/24 History Allergies Allergy/AdvReac Type Severity Reaction Status Date / Time doxycycline Allergy Anaphylaxis Verified 03/17/24 09:14 Surgical - Exam Vital Signs Temp Pulse Resp BP Pulse Ox 97.3 F L 105 H 16 117/80 96 03/17/24 09:19 03/17/24 09:19 03/17/24 09:19 03/17/24 09:19 03/17/24 09:19 - General well developed, well nourished, no distress - Eyes PERRL - ENT normal pinna - Neck no masses - Respiratory normal expansion - Cardiovascular Rhythm: regular - Abdomen Abdomen: soft, non tender Assessment and Plan Assessment: Will perform screening colonoscopy.
--- NOTE | 2024-03-17 10:19 | P.OP ---
Date of Procedure: 03/17/24 Preoperative Diagnosis: Screening colonoscopy Postoperative Diagnosis: Severe diverticulosis Procedure(s) Performed: Colonoscopy Anesthesia: MAC Surgeon: Yinka Benitez Pathology: none sent Condition: stable Disposition: PACU Description of Procedure: Patient is placed on the endoscopy table lateral position. She received IV sedation. Digital rectal exams performed. This revealed no abnormalities. Flexible colonoscope was then placed patient anus and passed throughout the colon. The scope could not be advancedce beyond the sigmoid colon secondary to severe diverticulosis. The scope was then withdrawn. The visualized sigmoid colon had extensive diverticular changes. The rectum appeared normal. Scope withdrawn for patient. Patient was scheduled for a barium enema.
[2024-03-17 11:03] VITALS: BP 118/66; PULSE 81; RESP 17
--- NOTE | 2024-03-17 12:18 | FL ---
EXAMINATION TYPE: FL barium enema DATE OF EXAM: 03/17/2024 12:12 PM CLINICAL INDICATION:Female, 58 years old with history of diverticulosis , incomplet colonoscopy; COMPARISON: None TECHNIQUE: The procedure was explained and patient history elicited. All patient questions were answ ered prior to beginning. Multiple spot fluoroscopic images of the colon were obtained after the recta l administration of liquid barium as the contrast agent. Multiple postprocedural overhead images, w ere obtained and reviewed. Fluoroscopic time:2.06 min Fluoroscopic images:None Radiographs taken: 73 DAP: Not reported [id number] FINDINGS: The emergency vehicle dispatcher abdominal radiograph demonstrates a normal bowel gas pattern without dilated loo ps of small or large bowel. There is no evidence for organomegaly or pneumoperitoneum. No abnormal c alcifications. The visualized osseous structures are intact. The colon demonstrates redundant course and multiple diverticula along the contour of the colon. Limi larry evaluation of the sigmoid: Due to overlapping bowel and diverticula. No evidence for Focal strict ure, internal filling defects within the limitations of exam.. Views of the cecum with manual compre ssion are unremarkable. Postevacuation images are unremarkable. IMPRESSION: Limited evaluation of the sigmoid: 2 extensive overlapping of sigmoid colon and numerous diverticula. [facility], , 03/17/2024 12:16 PM
== END | disposition home or self-care (01) ==
LOC: ORWHC2ENDO 08:41
PROVIDERS: ATTEND Surgery
DX: Z12.11 Encounter for screening for malignant neoplasm of colon (principal); K57.30 Diverticulosis of large intestine without perforation or abscess without bleeding; J45.909 Unspecified asthma, uncomplicated; M79.7 Fibromyalgia; F41.9 Anxiety disorder, unspecified; F17.210 Nicotine dependence, cigarettes, uncomplicated; M19.90 Unspecified osteoarthritis, unspecified site; Z86.73 Personal history of transient ischemic attack (TIA), and cerebral infarction without residual deficits; Z90.710 Acquired absence of both cervix and uterus; Z98.890 Other specified postprocedural states; Z90.49 Acquired absence of other specified parts of digestive tract; Z90.13 Acquired absence of bilateral breasts and nipples; Z88.0 Allergy status to penicillin; Z79.51 Long term (current) use of inhaled steroids; Z79.899 Other long term (current) drug therapy
CPT/HCPCS: 74270; 45378; J2704

== ENCOUNTER → 2024-06-01 | Outpatient (CLI) | payer MEDICARE, OTHER ==
[2024-06-01 18:14] LABS: Basophils # (A) 0.06 X 10*3/uL (0.00-0.10); Basophils % (A) 0.7 %; Eosinophils % (A) 2.2 %; HCT 42.7 % (37.2-46.3); HGB 14.4 g/dL (12.0-15.0); Lymphocytes # (A) 3.37 X 10*3/uL (0.90-5.00); Lymphocytes % (A) 37.6 %; MCH 31.2 pg (27.0-32.0); MCHC 33.7 g/dL (32.0-37.0); MCV 92.4 FL (80.0-97.0); Mean Platelet Volume 10.9 FL (9.5-12.2); Monocytes # (A) 0.56 X 10*3/uL (0.20-1.00); Monocytes % (A) 6.3 %; NRBC Per 100 WBC 0 X 10*3/uL (0.00-0.01); Neutrophils # (A) 4.74 X 10*3/uL (1.80-7.70); Neutrophils % (A) 52.9 %; Platelet Count 189 X 10*3/uL (140-440); RBC 4.62 X 10*6/uL (4.10-5.20); RDW 13.2 % (11.5-14.5); WBC 8.96 X 10*3/uL (4.50-10.00)
[2024-06-02 03:17] LABS: Alternaria alternata IgE <0.10 kU/L; Aspergillus fumagatus IgE <0.10 kU/L; Birch IgE <0.10 kU/L; Cat Epith & Dander IgE <0.10 kU/L; Cladosporian herbarum IgE <0.10 kU/L; Cockroach IgE <0.10 kU/L; Dermato. farinae IgE <0.10 kU/L; Dog Dander IgE <0.10 kU/L; Elm IgE <0.10 kU/L; Maple (Box Elder) IgE <0.10 kU/L; Oak IgE <0.10 kU/L; Ragweed,Common IgE <0.10 kU/L; Red Top (Bentgrass) IgE <0.10 kU/L
[2024-06-02 05:54] LABS: Immunoglobulin E <5.00 IU/mL (0.00-114.00)
== END | disposition home or self-care (01) ==
LOC: LABWHC1 14:26
PROVIDERS: ATTEND Internal Medicine
DX: J67.9 Hypersensitivity pneumonitis due to unspecified organic dust (principal)
CPT/HCPCS: 36415; 82785; 85025; 86003

== ENCOUNTER → 2024-10-14 | Outpatient (CLI) | payer MEDICARE, OTHER ==
--- NOTE | 2024-10-14 09:49 | P.PN ---
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 Anderson regarding a painful left breast implant. 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 An cold reduction roller was placed s everal months later and the implant was then placed in November 2011. The implant is a silicone shell which is filled with saline. Following placement of the implant approximately 2 months later the patient suffered from a cerebrovascular accident. She does not have any residual from the stroke. She had very blurred vision and passed out. They have not determine the cause of the stroke. She has subsequently developed fibromyalgia and neuropathy in her lower extremities. She has had multiple right breast biopsies, she has persistent pain and discomfort in the right breast. She has anxiety related to the right breast that she will develop a tumor in the side. She is not interested in continued surveillance and would like to have a right breast mastectomy: to match she wishes removal of the left breast implant so she will be symmetric. We have discussed the prophylactic mastectomy does not increase survival, she understands this but is very concerned about the surveillance and the asymmetry and wishes it to be removed. I've also discussed that prophylactic mastectomy has risks associated with it which include bleeding, infection, reaction to the anesthetic. Again she understands and wishes to proceed. The patient states she has persistent burning related to the implant. The pain is constant. It is also changed in contour. She cannot lay on her left side secondary to the pain, and it causes her to be nauseated. She cannot find clothes to fit correctly. The patient developed a lump in her right breast for which she had an excisional biopsy in 2017. She was told it was benign. She does not have any new lumps masses or nodules in either breast. She has not had a recent mammogram. She underwent a right breast mammogram on . This was followed by a right breast ultrasound. Initially there was recommendation for core biopsy however on attempted core biopsy on the procedure was canceled with six-month follow-up of the right breast recommended instead. She underwent a left breast implant removal and right mastectomy on 04-09-21. 10-10-21 This time she has no complaints related to her chest wall. She is not complaining of any lumps masses or nodules on her chest wall. 10-10-22 Patient is at no complaints related to her chest wall is at this time. She is not complaining of any lumps masses or nodules of concern. She is very happy she had the implant removed and the other breast removed as well. 10-15-23 She has no complaints of any lumps masses or nodules related to her chest wall. 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 She was recently treated with a course of steroids. 10-14-24 Karol has a history of a left breast malignant phylloides tumor. She underwent in 2010 a left mastectomy and implant reconstruction, the implant reconstruction was painful and she subsequently underwent removal of the implant and a right mastectomy for symmetry purposes and secondary to persistent pain in the right breast and multiple right breast biopsies. She is complaining of some fullness under her left axilla with some discomfort. Otherwise she has no complaints related to either chest wall. Caffeine: 3 cups/day nicotine: 10 cigarettes/day chocolate: none Family history: Father: Stomach cancer Mother: Uterine cancer Sister: Uterine cancer patient: malignant phyloides tumor Hormonal history: Menarche: 12 , breast fed: no, age at first : 18 menopause: hysterectomy 35; left ovaries, had uterine cancer ( did not have any radiation or chemotherapy) BCP: none hormones: none Surgical history: Hysterectomy Left breast mastectomy with implant reconstruction; malignant phylloides tumor Right breast biopsy Appendectomy Cholecystectomy Tumor removed from vocal cord Lipoma removed Carpal tunnel right wrist Hemorrhoidectomy bladder suspension implant removal, right mastectomy Medical history: fibromyalgia neuropathy arthritis anxiety Spasm both arms into hands GERD hypersensitivity pneumonitis was recently treated with steroids Social History: nicotine: 10 cigarettes per day Alcohol: GERD Marijuana: Negative - Constitutional Constitutional: Reports sweats - EENT Eyes: denies blurred vision, denies pain Ears: bilateral: tinnitus, deny: decreased hearing Ears, nose, mouth and throat: Reports headache, Denies sore throat - Breasts Breasts: bilateral: as per HPI - Cardiovascular Comment: 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 Cardiovascular: Reports chest pain, Denies shortness of breath - Respiratory Comment: 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/ shot every two months - Gastrointestinal Gastrointestinal: Reports diarrhea, Denies abdominal pain, Denies nausea, Denies vomiting - Genitourinary (Female) Genitourinary: Denies dysuria, Denies hematuria - Menstruation Menstruation: Reports postmenopausal - Musculoskeletal Comment: arthritis, fibromyalgia - Integumentary Comment: shingles once a month on her buttock Integumentary: Reports pruritus, Reports rash - Neurological Comment: CVA - Psychiatric Psychiatric: Reports anxiety - Endocrine Endocrine: Reports fatigue, Reports weight change - Hematologic/Lymphatic Comment: none - Allergic/Immunologic Allergic/Immunologic: Reports as per HPI Objective - Constitutional General appearance: Present: cooperative - EENT Eyes: Present: EOMI ENT: Present: hearing grossly normal - Neck Neck: Present: normal ROM - Respiratory Respiratory: bilateral: CTA - Cardiovascular Rhythm: regular Heart sounds: normal: S1, S2 - Integumentary Integumentary: Present: normal turgor - Musculoskeletal Musculoskeletal: Present: gait normal - Psychiatric Psychiatric: Present: A&O x's 3, appropriate affect, intact judgment & insight - Additional findings Additional findings: Chest wall: Right chest wall well-healed scar no evidence of any disease Right axilla: No adenopathy of concern Left chest wall: Well-healed scar no evidence of any disease Left axilla: No adenopathy of concern; particular attention high in the axilla where the patient is concerned about some nodularity did not reveal any specific nodularity on examination Assessment and Plan Assessment: Impression: Patient status post bilateral mastectomy history of malignant phyloides tumor left breast Patient is concerned about some nodularity in the left axilla which I was unable to palpate Plan: Ultrasound left axilla and follow-up after this encouraged to stop smoking Follow-up for surveillance in 1 year CC: Dr. Anderson
[2024-10-14 10:03] VITALS: BP 138/77; PULSE 85; RESP 17; TEMP 97.9
== END ==
LOC: WWCWWP 09:34
PROVIDERS: ATTEND Surgery
DX: C50.912 Malignant neoplasm of unspecified site of left female breast (principal); F17.200 Nicotine dependence, unspecified, uncomplicated; Z90.13 Acquired absence of bilateral breasts and nipples; Z85.3 Personal history of malignant neoplasm of breast; Z88.1 Allergy status to other antibiotic agents

== ENCOUNTER → 2024-10-26 | Outpatient (CLI) | payer MEDICARE, OTHER ==
--- NOTE | 2024-10-26 07:33 | USB ---
Reason for Exam: Clinical finding. Patient History: Menarche at age 12. First Full-Term at age 18. Hysterectomy at age 35. Endometrial cancer, age 35. Breast cancer, age 45. 2010, Mastectomy on the Left side. 01/14/2014, Benign Ultrasound-Guided Core Biopsy on the right side. 01/23/2021, US discontinued breast bx RT on the right side. 2011, Implant on the left side. Technique: Method: Targeted. Prior Study Comparison: 01/05/2018 Screening Mammogram, [facility]. 03/30/2019 Screening Mammogram, [facility]. 01/16/2021 Right Diagnostic Mammogram, [facility]. Findings: The axilla of the left breast was scanned. Technique utilized:US breast axilla LT Image; Ultrasound imaging of: Axilla. No evidence for organizing fluid collection or mass. A prominent vessel is identified in the axilla.Technique utilized:US breast axilla LT Image; Ultrasound imaging of: Axilla. No evidence for organizing fluid collection or mass. A prominent vessel is identified in the axilla. Normal-appearing lymph nodes.Technique utilized:US breast axilla LT Image; Ultrasound imaging of: Axilla. No evidence for organizing fluid collection or mass. Normal-appearing lymph nodes. Overall Assessment: Negative, BI-RAD 1 Management: Screening Mammogram of both breasts in 1 year. A clinical breast exam by your physician is recommended on an annual basis and results should be correlated with mammographic findings. This exam should not preclude additional follow-up of suspicious palpable abnormalities. Results were given to the patient verbally at the time of exam. [facility], , 10/26/2024 7:30 AM. Electronically signed and approved by: Bobby Galvan DO
== END | disposition home or self-care (01) ==
LOC: RADUSWWP 06:49
PROVIDERS: ATTEND Surgery
DX: N63.20 Unspecified lump in the left breast, unspecified quadrant (principal); Z85.3 Personal history of malignant neoplasm of breast

== ENCOUNTER → 2024-12-01 | Outpatient (CLI) | payer MEDICARE, OTHER ==
[2024-12-01 13:07] VITALS: BP 121/60; PULSE 88; RESP 17; TEMP 98.1
--- NOTE | 2024-12-01 13:25 | P.PN ---
Subjective Progress Note Date: 12/01/24 Principal diagnosis: left breast malignant phylloides tumor 201010/14/24 Principal diagnosis: Left breast malignant phylloides tumor 201010/14/24 10/10/22 Principal diagnosis: Bilateral mastectomies, malignant phylloides tumor left breast 2010 Malignant phylloides tumor left breast, 2010 Karol is a 55 year old white female seen in consultation for Dr. Anderson regarding a painful left breast implant. 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 An director loss prevention was placed several months later and the implant was then placed in November 2011. The implant is a silicone shell which is filled with saline. Following placement of the implant approximately 2 months later the patient suffered from a cerebrovascular accident. She does not have any residual from the stroke. She had very blurred vision and passed out. They have not determine the cause of the stroke. She has subsequently developed fibromyalgia and neuropathy in her lower extremities. She has had multiple right breast biopsies, she has persistent pain and discomfort in the right breast. She has anxiety related to the right breast that she will develop a tumor in the side. She is not interested in continued surveillance and would like to have a right breast mastectomy: to match she wishes removal of the left breast implant so she will be symmetric. We have discussed the prophylactic mastectomy does not increase survival, she understands this but is very concerned about the surveillance and the asymmetry and wishes it to be removed. I've also discussed that prophylactic mastectomy has risks associated with it which include bleeding, infection, reaction to the anesthetic. Again she understands and wishes to proceed. The patient states she has persistent burning related to the implant. The pain is constant. It is also changed in contour. She cannot lay on her left side secondary to the pain, and it causes her to be nauseated. She cannot find clothes to fit correctly. The patient developed a lump in her right breast for which she had an excisional biopsy in 2017. She was told it was benign. She does not have any new lumps masses or nodules in either breast. She has not had a recent mammogram. She underwent a right breast mammogram on . This was followed by a right breast ultrasound. Initially there was recommendation for core biopsy however on attempted core biopsy on the procedure was canceled with six-month follow-up of the right breast recommended instead. She underwent a left breast implant removal and right mastectomy on 04-09-21. 10-10-21 This time she has no complaints related to her chest wall. She is not complaining of any lumps masses or nodules on her chest wall. 10-10-22 Patient is at no complaints related to her chest wall is at this time. She is not complaining of any lumps masses or nodules of concern. She is very happy she had the implant removed and the other breast removed as well. 10-15-23 She has no complaints of any lumps masses or nodules related to her chest wall. Dr. Vides the fruit express agent secondary to hypersensitivity pneumonitis. She was recently treated with a course of steroids. 10-14-24 Karol has a history of a left breast malignant phylloides tumor. She underwent in 2010 a left mastectomy and implant reconstruction, the implant reconstruction was painful and she subsequently underwent removal of the implant and a right mastectomy for symmetry purposes and secondary to persistent pain in the right breast and multiple right breast biopsies. She is complaining of some fullness under her left axilla with some discomfort. Otherwise she has no complaints related to either chest wall. 12-01-14 Karol has a history of a left breast malignant phylloides tumor. She underwent in 2010 a left mastectomy and implant reconstruction, the implant reconstruction was painful and she subsequently underwent removal of the implant and a right mastectomy for symmetry purposes and secondary to persistent pain in the right breast and multiple right breast biopsies. On her visit of 10-14-24 setamiko was complaining of some fullness under her left axilla with some discomfort. Otherwise she had no complaints related to either chest wall. No lesions of concern were noted on examination at that time. ultrasound of the left axilla 10-26-24 prominent blood vessel, no lesions of concern BIRAD 1 Caffeine: 3 cups/day nicotine: 10 cigarettes/day chocolate: none Family history: Father: Stomach cancer Mother: Uterine cancer Sister: Uterine cancer patient: malignant phyloides tumor Hormonal history: Menarche: 12 , breast fed: no, age at first : 18 menopause: hysterectomy 35; left ovaries, had uterine cancer ( did not have any radiation or chemotherapy) BCP: none hormones: none Surgical history: Hysterectomy Left breast mastectomy with implant reconstruction; malignant phylloides tumor Right breast biopsy Appendectomy Cholecystectomy Tumor removed from vocal cord Lipoma removed Carpal tunnel right wrist Hemorrhoidectomy bladder suspension implant removal, right mastectomy Medical history: fibromyalgia neuropathy arthritis anxiety Spasm both arms into hands GERD hypersensitivity pneumonitis was recently treated with steroids Social History: nicotine: 10 cigarettes per day Alcohol: GERD Marijuana: Negative - Constitutional Constitutional: Reports sweats - EENT Eyes: denies blurred vision, denies pain Ears: bilateral: tinnitus, deny: decreased hearing Ears, nose, mouth and throat: Reports headache, Denies sore throat - Breasts Breasts: bilateral: as per HPI - Cardiovascular Comment: 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 Cardiovascular: Reports chest pain, Denies shortness of breath - Respiratory Comment: 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/ shot every two months - Gastrointestinal Gastrointestinal: Reports diarrhea, Denies abdominal pain, Denies nausea, Denies vomiting - Genitourinary (Female) Genitourinary: Denies dysuria, Denies hematuria - Menstruation Menstruation: Reports postmenopausal - Musculoskeletal Comment: arthritis, fibromyalgia - Integumentary Comment: shingles once a month on her buttock Integumentary: Reports pruritus, Reports rash - Neurological Comment: CVA - Psychiatric Psychiatric: Reports anxiety - Endocrine Endocrine: Reports fatigue, Reports weight change - Hematologic/Lymphatic Comment: none - Allergic/Immunologic Allergic/Immunologic: Reports as per HPI Objective - Vital Signs Vital signs: Vital Signs Temp 98.1 F 12/01/24 13:01 Pulse 88 12/01/24 13:01 Resp 17 12/01/24 13:01 BP 121/60 12/01/24 13:01 Pulse Ox 97 12/01/24 13:01 FiO2 Intake & Output 11/30/24 12/01/24 12/01/24 18:59 06:59 18:59 Weight 81.647 kg - Constitutional General appearance: Present: cooperative - EENT Eyes: Present: EOMI ENT: Present: hearing grossly normal - Neck Neck: Present: normal ROM - Respiratory Respiratory: bilateral: rhonchi - Cardiovascular Rhythm: regular Heart sounds: normal: S1, S2 - Integumentary Integumentary: Present: normal turgor - Psychiatric Psychiatric: Present: A&O x's 3 - Additional findings Additional findings: Chest wall: Right chest wall well-healed scar no evidence of any disease Right axilla: No adenopathy of concern Left chest wall: Well-healed scar no evidence of any disease Left axilla: No adenopathy of concern; particular attention high in the axilla where the patient is concerned about some nodularity did not reveal any specific nodularity on examination Assessment and Plan Assessment: Impression: Patient status post bilateral mastectomy history of malignant phyloides tumor left breast Patient is concerned about some nodularity in the left axilla which I was unable to palpate Plan: Ultrasound left axilla done on 10-26-24 BIRAD 1 encouraged to stop smoking Follow-up for surveillance in 1 year CC: Dr. Anderson
== END ==
LOC: WWCWWP 12:52
PROVIDERS: ATTEND Surgery
DX: C50.912 Malignant neoplasm of unspecified site of left female breast (principal); Z85.3 Personal history of malignant neoplasm of breast; Z88.1 Allergy status to other antibiotic agents; Z90.13 Acquired absence of bilateral breasts and nipples